=== PATIENT | male | born 2000 | race Caucasian/White ===

== ENCOUNTER 2023-02-23 17:22 | Emergency (ER) | payer OTHER, SELFPAY ==
[2023-02-23 17:34] VITALS: BP 134/76; PULSE 68; RESP 12; TEMP 37; O2SAT 96; BMI 29.5
[2023-02-23 17:55] LABS: Basophils Absolute Auto 0.1 10^3/uL (0.0-0.1); Basophils Percent Auto 0.9 % (0.2-2.0); Eosinophils Absolute Auto 0.5 10^3/uL (0.0-0.7); Eosinophils Percent Auto 7.8 % (0.9-7.0); Hematocrit 45.4 % (42.0-54.0); Immature Granulocytes Abs Auto 0.03 10^3/uL (0.00-0.03); Immature Granulocytes Pct Auto 0.5 % (0.0-0.5); Lymphocytes Absolute Auto 1.8 10^3/uL (1.2-3.8); Lymphocytes Percent Auto 28.4 % (20.5-60.0); Mean Corpuscular HGB Conc 35.2 g/dL (29.9-35.2); Mean Corpuscular Hemoglobin 32.3 pg (25.9-34.0); Mean Corpuscular Volume 91.5 fL (80.0-94.0); Mean Platelet Volume 10.1 fL (9.5-13.5); Monocytes Absolute Auto 0.7 10^3/uL (0.3-0.8); Monocytes Percent Auto 11.5 % (1.7-12.0); Neutrophils Absolute Auto 3.2 10^3/uL (1.4-6.5); Neutrophils Percent Auto 50.9 % (43.0-75.0); Platelet Count 279 10^3/uL (150-450); Red Blood Count 4.96 10^6/uL (4.70-6.10); White Blood Count 6.4 10^3/uL (4.0-11.0)
[2023-02-23 18:07] LABS: Bilirubin Urine NEGATIVE (NEGATIVE); Blood Urine NEGATIVE (NEGATIVE); Clarity Urine CLEAR (CLEAR); Color Urine YELLOW (YELLOW); Glucose Urine UA NEGATIVE (NEGATIVE); Ketones Urine NEGATIVE (NEGATIVE); Leukocyte Esterase Urine NEGATIVE (NEGATIVE); Nitrite Urine NEGATIVE (NEGATIVE); Protein Urine NEGATIVE (NEG/TRACE); Specific Gravity Urine 1.015 (1.005-1.025); Urobilinogen Urine 0.2 EU/dL (0.2-1.0)
[2023-02-23 18:11] LABS: Urine Microscopic Indicated NO
[2023-02-23 18:19] LABS: Alanine Aminotransferase 81 U/L (16-63); Albumin Globulin Ratio 1.4; Albumin Level 4.4 g/dL (3.4-5.0); Alkaline Phosphatase 51 U/L (46-116); Anion Gap 14.1; Aspartate Amino Transferase 39 U/L (15-37); BUN Creatinine Ratio 8.7; Bilirubin Total 0.4 mg/dL (0.2-1.0); Calcium 9.4 mg/dL (8.5-10.1); Carbon Dioxide 28.6 mmol/L (21.0-32.0); Chloride 102 mmol/L (98-107); Estimated GFR (African America >60 (>=60); Estimated GFR (Non-African Ame >60 (>=60); Globulin 3.2 g/dL; Glucose 95 mg/dL (74-106); Potassium 4.7 mmol/L (3.5-5.1); Sodium 140 mmol/L (136-145); Total Protein 7.6 g/dL (6.4-8.2)
--- NOTE | 2023-02-23 18:56 | ECG_ITS ---
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
--- NOTE | 2023-02-23 19:04 | US_ITS ---
The [address] [address] Patient Name: BEV MORROW MRN: [id number] date: 2000 Sex: M Assigned Patient Location: ED.MAIN Current Patient Location: ER Accession/Order Number: [id number] Exam Date: 02/23/2023 19:30 Report Date: 02/23/2023 20:14 At the request of: SUNNY BUI Procedure: US right upper quadrant RIGHT UPPER QUADRANT ULTRASOUND HISTORY: Epigastric pain COMPARISON: None. TECHNIQUE: Sonography of the right upper quadrant was performed. Images were obtained and stored in a permanent archive. RESULTS: Pancreas: Normal sonographic appearance. Portions obscured: tail Liver: Craniocaudal length 17 cm Echotexture: Normal, homogeneous. Echogenicity: Normal Surface contour: Smooth Lesions: None. Biliary: No intrahepatic biliary duct dilation. CBD: 0.2 cm at the hilum. Gallbladder: Normal caliber -Contents: No cholelithiasis -Wall: Normal -Other: No pericholecystic fluid. Right Kidney: No hydronephrosis. Ascites: None. US/US right upper quadrant IMPRESSION: NORMAL SONOGRAPHIC APPEARANCE OF THE RIGHT UPPER QUADRANT. Electronically authenticated by: KANA AMBRIZ Date: 02/23/2023 20:14
--- NOTE | 2023-02-23 19:05 | ED.ABDPAIN1 ---
Documented by User: SANCHEZ Melgar 02/23/23 20:21 HPI - Abdominal Pain General Chief Complaint: Abdominal Pain Stated Complaint: Abdominal Pain Time Seen by Provider: 02/23/23 17:40 Source: patient Mode of arrival: walk-in Limitations: no limitations History of Present Illness HPI narrative: patient is a 22-year-old male who presents to the emergency department for the evaluation of abdominal pain for the last four days. He describes pain in the epigastrium radiating into the chest. He reports occasional nausea but has not had any vomiting, fevers or upper respiratory symptoms. No medications taken prior to arrival. He denies any low abdominal pain, flank pain or back pain. No urinary symptoms. He states he has had occasional diarrhea. He denies emily chest pain, shortness of breath but states he has had heart palpitations for over a year which has not been evaluated by his PCP. He has not had any extremity swelling, hemoptysis. No recent surgeries or traumas. Related Data Home Medications Medication Instructions Recorded Confirmed fexofenadine 180 mg tablet 180 mg PO DAILY PRN allergies 02/23/23 02/23/23 (Mesha Allergy) Previous Rx's Medication Instructions Recorded ondansetron 4 mg disintegrating 4 mg PO Q6H PRN nausea and 02/23/23 tablet vomiting #12 tabs pantoprazole 40 mg tablet,delayed 40 mg PO DAILY #7 tabs 02/23/23 release (Protonix) sucralfate 1 gram tablet (Carafate) 1 g PO Q6H PRN abdominal pain #12 02/23/23 tabs Allergies Allergy/AdvReac Type Severity Reaction Status Date / Time No Known Drug Allergies Allergy Verified 02/23/23 17:33 Review of Systems ROS Constitutional Denies: fever or chills Ears, nose, mouth, and throat Denies: throat pain Cardiovascular Reports: palpitations; Denies: chest pain Respiratory Denies: shortness of breath or cough Gastrointestinal Reports: abdominal pain and nausea; Denies: vomiting Musculoskeletal Denies: back pain or neck pain Integumentary/Breast Denies: rash PFSH PFSH Social History Smoking status: Current every day smoker Exam Narrative Exam Narrative: Gen.: Awake, alert, in no distress Head: Normocephalic, atraumatic ENT: Moist mucous membranes Respiratory: No respiratory distress, lungs clear bilaterally Cardio: Regular rate and rhythm Gastrointestinal: Abdomen is soft, nondistended and nontender to palpation Extremities: Moves extremities equally, no injuries noted Psych: Normal mood and affect Neuro: No focal neuro deficit Skin: Warm, dry, intact Constitutional Vital Signs, click to edit/add: Last Vital Signs Temp 98.6 F 02/23/23 17:34 Pulse 68 02/23/23 17:34 Resp 12 02/23/23 17:34 BP 134/76 02/23/23 17:34 Pulse Ox 96 02/23/23 17:34 O2 Del Method Room Air 02/23/23 17:34 Course Vital Signs Vital signs: Vital Signs Temperature 98.6 F 02/23/23 17:34 Pulse Rate 68 02/23/23 17:34 Respiratory Rate 12 02/23/23 17:34 Blood Pressure 134/76 02/23/23 17:34 Pulse Oximetry 96 02/23/23 17:34 Oxygen Delivery Method Room Air 02/23/23 17:34 Temperature 98.6 F 02/23/23 17:34 Pulse Rate 68 02/23/23 17:34 Respiratory Rate 12 02/23/23 17:34 Blood Pressure 134/76 02/23/23 17:34 Pulse Oximetry 96 02/23/23 17:34 Oxygen Delivery Method Room Air 02/23/23 17:34 MDM - Abdominal Pain MDM Narrative Medical decision making narrative: patient treated with IV fluids, Protonix, Zofran. EKG, lab studies within normal limits although LFTs are minimally elevated to the patient was sent for an ultrasound of the right upper quadrant which is unremarkable. He'll be discharged home with Protonix, Carafate, Zofran. Follow-up with PCP and return to the Emergency Room if symptoms change or worsen. Medical Records Attestation: I reviewed the patient's medical records. Lab Data Attestation: I reviewed the patient's lab results. Labs: Lab Results 02/23/23 Range/Units 17:45 WBC 6.4 (4.0-11.0) 10^3/uL RBC 4.96 (4.70-6.10) 10^6/uL Hgb 16.0 (14.0-18.0) g/dL Hct 45.4 (42.0-54.0) % MCV 91.5 (80.0-94.0) fL MCH 32.3 (25.9-34.0) pg MCHC 35.2 (29.9-35.2) g/dL RDW 12.0 (11.0-15.0) % Plt Count 279 (150-450) 10^3/uL MPV 10.1 (9.5-13.5) fL Neut % (Auto) 50.9 (43.0-75.0) % Lymph % (Auto) 28.4 (20.5-60.0) % [place] % (Auto) 11.5 (1.7-12.0) % Eos % (Auto) 7.8 H (0.9-7.0) % Baso % (Auto) 0.9 (0.2-2.0) % Neut # (Auto) 3.2 (1.4-6.5) 10^3/uL Lymph # (Auto) 1.8 (1.2-3.8) 10^3/uL [place] # (Auto) 0.7 (0.3-0.8) 10^3/uL Eos # (Auto) 0.5 (0.0-0.7) 10^3/uL Baso # (Auto) 0.1 (0.0-0.1) 10^3/uL Abs Immat Gran (auto) 0.03 (0.00-0.03) 10^3/uL Imm/Tot Granulo (auto) 0.5 (0.0-0.5) % Sodium 140 (136-145) mmol/L Potassium 4.7 (3.5-5.1) mmol/L Chloride 102 (98-107) mmol/L Carbon Dioxide 28.6 (21.0-32.0) mmol/L Anion Gap 14.1 BUN 9.0 (7.0-18.0) mg/dL Creatinine 1.04 (0.70-1.30) mg/dL Est GFR ( Amer) >60 (>=60) Est GFR (Non-Af Amer) >60 (>=60) BUN/Creatinine Ratio 8.7 Glucose 95 (74-106) mg/dL Calcium 9.4 (8.5-10.1) mg/dL Total Bilirubin 0.4 (0.2-1.0) mg/dL AST 39 H (15-37) U/L ALT 81 H (16-63) U/L Alkaline Phosphatase 51 (46-116) U/L Total Protein 7.6 (6.4-8.2) g/dL Albumin 4.4 (3.4-5.0) g/dL Globulin 3.2 g/dL Albumin/Globulin Ratio 1.4 Lipase 45.0 L (73.0-393.0) U/L TSH 2.009 (0.358-3.740) uIU/mL Urine Color Yellow (YELLOW) Urine Clarity Clear (CLEAR) Urine pH 7.0 (5.0-9.0) Ur Specific [place] 1.015 (1.005-1.025) Urine Protein Negative (NEG/TRACE) mg/dL Urine Glucose (UA) Negative (NEGATIVE) mg/dL Urine Ketones Negative (NEGATIVE) mg/dL Urine Occult Blood Negative (NEGATIVE) Urine Nitrite Negative (NEGATIVE) Urine Bilirubin Negative (NEGATIVE) Urine Urobilinogen 0.2 (0.2-1.0) EU/dL Ur Leukocyte Esterase Negative (NEGATIVE) Imaging Data US - abdomen: Attestation: I have reviewed the pertinent imaging results. Radiologist's impression: Procedure: US right upper quadrant RIGHT UPPER QUADRANT ULTRASOUND HISTORY: Epigastric pain COMPARISON: None. TECHNIQUE: Sonography of the right upper quadrant was performed. Images were obtained and stored in a permanent archive. RESULTS: Pancreas: Normal sonographic appearance. Portions obscured: tail Liver: Craniocaudal length 17 cm Echotexture: Normal, homogeneous. Echogenicity: Normal Surface contour: Smooth Lesions: None. Biliary: No intrahepatic biliary duct dilation. CBD: 0.2 cm at the hilum. Gallbladder: Normal caliber -Contents: No cholelithiasis -Wall: Normal -Other: No pericholecystic fluid. Right Kidney: No hydronephrosis. Ascites: None. IMPRESSION: NORMAL SONOGRAPHIC APPEARANCE OF THE RIGHT UPPER QUADRANT. Electronically authenticated by: KANA AMBRIZ Date: 02/23/2023 20:14 ECG Data Attestation: I personally reviewed and interpreted this ECG as follows: (normal sinus rhythm at a rate of sixty-four, no acute ST elevation or ectopy. Sinus arrhythmia noted. EKG reviewed by attending physician.) ECG interpretation date: 02/23/23 ECG interpretation time: 19:07 Discharge Plan Discharge Chief Complaint: Abdominal Pain Clinical Impression: Abdominal pain Patient Disposition: Home, Self-Care Time of Disposition Decision: 20:18 Condition: Good Prescriptions / Home Meds: New sucralfate [Carafate] 1 gram tablet 1 g PO Q6H PRN (Reason: abdominal pain) Qty: 12 0RF pantoprazole [Protonix] 40 mg tablet,delayed release (DR/EC) 40 mg PO DAILY Qty: 7 0RF ondansetron 4 mg tablet,disintegrating 4 mg PO Q6H PRN (Reason: nausea and vomiting) Qty: 12 0RF No Action fexofenadine [Mesha Allergy] 180 mg tablet 180 mg PO DAILY PRN (Reason: allergies) Instructions: Abdominal Pain (ED) Stand Alone Forms: Portal Instructions Referrals: Physician,Non-Staff, MD [Primary Care Provider] - 1 week Discharge Date/Time: 02/23/23 20:27 Documented by User: Juan Aguilar MD 03/28/23 16:58 HPI - Abdominal Pain General Chief Complaint: Abdominal Pain Stated Complaint: Abdominal Pain Time Seen by Provider: 02/23/23 17:40 Related Data Home Medications Medication Instructions Recorded Confirmed fexofenadine 180 mg tablet 180 mg PO DAILY PRN allergies 02/23/23 02/23/23 (Mesha Allergy) Previous Rx's Medication Instructions Recorded ondansetron 4 mg disintegrating 4 mg PO Q6H PRN nausea and 02/23/23 tablet vomiting #12 tabs pantoprazole 40 mg tablet,delayed 40 mg PO DAILY #7 tabs 02/23/23 release (Protonix) sucralfate 1 gram tablet (Carafate) 1 g PO Q6H PRN abdominal pain #12 02/23/23 tabs Allergies Allergy/AdvReac Type Severity Reaction Status Date / Time No Known Drug Allergies Allergy Verified 02/23/23 17:33 PFSH PFSH Social History Smoking status: Current every day smoker Exam Constitutional Vital Signs, click to edit/add: Last Vital Signs Temp 98.6 F 02/23/23 17:34 Pulse 68 02/23/23 17:34 Resp 12 02/23/23 17:34 BP 134/76 02/23/23 17:34 Pulse Ox 96 02/23/23 17:34 O2 Del Method Room Air 02/23/23 17:34 Course Vital Signs Vital signs: Vital Signs Temperature 98.6 F 02/23/23 17:34 Pulse Rate 68 02/23/23 17:34 Respiratory Rate 12 02/23/23 17:34 Blood Pressure 134/76 02/23/23 17:34 Pulse Oximetry 96 02/23/23 17:34 Oxygen Delivery Method Room Air 02/23/23 17:34 Temperature 98.6 F 02/23/23 17:34 Pulse Rate 68 02/23/23 17:34 Respiratory Rate 12 02/23/23 17:34 Blood Pressure 134/76 02/23/23 17:34 Pulse Oximetry 96 02/23/23 17:34 Oxygen Delivery Method Room Air 02/23/23 17:34 MDM - Abdominal Pain MDM Narrative Medical decision making narrative: patient treated with IV fluids, Protonix, Zofran. EKG, lab studies within normal limits although LFTs are minimally elevated to the patient was sent for an ultrasound of the right upper quadrant which is unremarkable. He'll be discharged home with Protonix, Carafate, Zofran. Follow-up with PCP and return to the Emergency Room if symptoms change or worsen. I, Dr Aguilar, have reviewed the above progress note and course of action in the ER; agree with the above. I have personally seen and evaluated this patient, gone over history and physical, and discussed disposition and treatment plan with the patient. Lab Data Attestation: I reviewed the patient's lab results. Labs: Lab Results 02/23/23 Range/Units 17:45 WBC 6.4 (4.0-11.0) 10^3/uL RBC 4.96 (4.70-6.10) 10^6/uL Hgb 16.0 (14.0-18.0) g/dL Hct 45.4 (42.0-54.0) % MCV 91.5 (80.0-94.0) fL MCH 32.3 (25.9-34.0) pg MCHC 35.2 (29.9-35.2) g/dL RDW 12.0 (11.0-15.0) % Plt Count 279 (150-450) 10^3/uL MPV 10.1 (9.5-13.5) fL Neut % (Auto) 50.9 (43.0-75.0) % Lymph % (Auto) 28.4 (20.5-60.0) % [place] % (Auto) 11.5 (1.7-12.0) % Eos % (Auto) 7.8 H (0.9-7.0) % Baso % (Auto) 0.9 (0.2-2.0) % Neut # (Auto) 3.2 (1.4-6.5) 10^3/uL Lymph # (Auto) 1.8 (1.2-3.8) 10^3/uL [place] # (Auto) 0.7 (0.3-0.8) 10^3/uL Eos # (Auto) 0.5 (0.0-0.7) 10^3/uL Baso # (Auto) 0.1 (0.0-0.1) 10^3/uL Abs Immat Gran (auto) 0.03 (0.00-0.03) 10^3/uL Imm/Tot Granulo (auto) 0.5 (0.0-0.5) % Sodium 140 (136-145) mmol/L Potassium 4.7 (3.5-5.1) mmol/L Chloride 102 (98-107) mmol/L Carbon Dioxide 28.6 (21.0-32.0) mmol/L Anion Gap 14.1 BUN 9.0 (7.0-18.0) mg/dL Creatinine 1.04 (0.70-1.30) mg/dL Est GFR ( Amer) >60 (>=60) Est GFR (Non-Af Amer) >60 (>=60) BUN/Creatinine Ratio 8.7 Glucose 95 (74-106) mg/dL Calcium 9.4 (8.5-10.1) mg/dL Total Bilirubin 0.4 (0.2-1.0) mg/dL AST 39 H (15-37) U/L ALT 81 H (16-63) U/L Alkaline Phosphatase 51 (46-116) U/L Total Protein 7.6 (6.4-8.2) g/dL Albumin 4.4 (3.4-5.0) g/dL Globulin 3.2 g/dL Albumin/Globulin Ratio 1.4 Lipase 45.0 L (73.0-393.0) U/L TSH 2.009 (0.358-3.740) uIU/mL Urine Color Yellow (YELLOW) Urine Clarity Clear (CLEAR) Urine pH 7.0 (5.0-9.0) Ur Specific [place] 1.015 (1.005-1.025) Urine Protein Negative (NEG/TRACE) mg/dL Urine Glucose (UA) Negative (NEGATIVE) mg/dL Urine Ketones Negative (NEGATIVE) mg/dL Urine Occult Blood Negative (NEGATIVE) Urine Nitrite Negative (NEGATIVE) Urine Bilirubin Negative (NEGATIVE) Urine Urobilinogen 0.2 (0.2-1.0) EU/dL Ur Leukocyte Esterase Negative (NEGATIVE) Discharge Plan Discharge Chief Complaint: Abdominal Pain Clinical Impression: Abdominal pain Patient Disposition: Home, Self-Care Time of Disposition Decision: 20:18 Condition: Good Prescriptions / Home Meds: New sucralfate [Carafate] 1 gram tablet 1 g PO Q6H PRN (Reason: abdominal pain) Qty: 12 0RF pantoprazole [Protonix] 40 mg tablet,delayed release (DR/EC) 40 mg PO DAILY Qty: 7 0RF ondansetron 4 mg tablet,disintegrating 4 mg PO Q6H PRN (Reason: nausea and vomiting) Qty: 12 0RF No Action fexofenadine [Mesha Allergy] 180 mg tablet 180 mg PO DAILY PRN (Reason: allergies) Instructions: Abdominal Pain (ED) Stand Alone Forms: Portal Instructions Referrals: Physician,Non-Staff, MD [Primary Care Provider] - 1 week Discharge Date/Time: 02/23/23 20:27
[2023-02-23 19:34] LABS: Thyroid Stimulating Hormone 2.009 uIU/mL (0.358-3.740)
[2023-02-23] MEDS: PANTOPRAZOLE SODIUM 40 MG VIAL IV (19:36)
[2023-02-23] MEDS: 0.9 % SODIUM CHLORIDE 1,000 ML 1000 ML IV (19:36)
[2023-02-23] MEDS: ONDANSETRON PF 4 MG/2 ML VIAL IV (19:36)
== END 2023-02-23 20:27 | disposition home or self-care (01) ==
PROVIDERS: Emergency Medicine; Physician Assistant; Emergency Provider Internal Medicine
DX: R10.9 Unspecified abdominal pain (principal); Z79.899 Other long term (current) drug therapy; F17.210 Nicotine dependence, cigarettes, uncomplicated
CPT/HCPCS: 36415; 76705; 80053; 81003; 83690; 84443; 85025; 93005; 96374; 96375; 99285

== ENCOUNTER 2023-09-06 20:30 | Emergency (ER) | payer OTHER, SELFPAY ==
[2023-09-06 20:43] VITALS: BP 131/100; PULSE 75; RESP 16; TEMP 37.1; O2SAT 99; BMI 31.0
--- NOTE | 2023-09-06 20:54 | ECG_ITS ---
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
--- NOTE | 2023-09-06 20:55 | ED_ITS ---
HPI - Arrhythmia/Palpitations General Chief Complaint: Arrhythmia/Palpitations Stated Complaint: Palpitation Time Seen by Provider: 09/06/23 20:36 Source: patient Mode of arrival: walk-in Limitations: no limitations History of Present Illness HPI narrative: Patient is a 23-year-old male who returns to the emergency department for continued intermittent palpitations over the last 3 months. He states he was seen in this emergency department for the same about 6 months ago. He does not have a primary care provider. He has not followed up since his previous emergency department visit. He states for the last 3 months intermittently he has a sensation that his heart is racing and skipping. He will occasionally have discomfort in the right upper chest. He states the palpitations take his breath away but he has no persistent shortness of breath. He has had mild congestion recently but no significant upper respiratory symptoms, vomiting or leg swelling. He states he typically notices the palpitations when he is laying down and resting. Related Data Home Medications Medication Instructions Recorded Confirmed No Known Home Medications 09/06/23 09/06/23 Allergies Allergy/AdvReac Type Severity Reaction Status Date / Time No Known Drug Allergies Allergy Verified 02/23/23 17:33 Review of Systems ROS Constitutional Denies: fever or chills Ears, nose, mouth, and throat Reports: nasal congestion Cardiovascular Reports: chest pain and palpitations Respiratory Denies: shortness of breath or cough Gastrointestinal Denies: nausea or vomiting Musculoskeletal Denies: back pain Integumentary/Breast Denies: rash Neurological Denies: headache PFSH PFSH Social History Smoking status: Current every day smoker Exam Narrative Exam Narrative: Gen.: Awake, alert, in no distress Head: Normocephalic, atraumatic ENT: Moist mucous membranes Respiratory: No respiratory distress, lungs clear bilaterally Cardio: Regular rate and rhythm Extremities: Moves extremities equally, no pedal edema Psych: Normal mood and affect Neuro: No focal neuro deficit Skin: Warm, dry, intact Constitutional Vital Signs, click to edit/add: Last Vital Signs Temp 98.8 F 09/06/23 20:43 Pulse 78 09/06/23 22:51 Resp 16 09/06/23 22:51 BP 129/75 09/06/23 22:51 Pulse Ox 100 09/06/23 22:51 O2 Del Method Room Air 09/06/23 20:43 Course Vital Signs Vital signs: Vital Signs Temperature 98.8 F 09/06/23 20:43 Pulse Rate 75 09/06/23 20:43 Respiratory Rate 16 09/06/23 20:43 Blood Pressure 131/100 H 09/06/23 20:43 Pulse Oximetry 99 09/06/23 20:43 Oxygen Delivery Method Room Air 09/06/23 20:43 Temperature 98.8 F 09/06/23 20:43 Pulse Rate 78 09/06/23 22:51 Respiratory Rate 16 09/06/23 22:51 Blood Pressure 129/75 09/06/23 22:51 Pulse Oximetry 100 09/06/23 22:51 Oxygen Delivery Method Room Air 09/06/23 20:43 MDM - Arrhythmia/Palpitations MDM Narrative Medical decision making narrative: 2140: Patient ordered to have lab testing, EKG. Imaging of the chest will be ordered after the D-dimer results. Case is turned over to attending physician at this time for disposition. For this patient encounter I reviewed the mid-level provider?s documentation, medical decision-making and treatment plan, and I personally spent time with this patient. Shared APC visit, physician attestation: [id number]: This visit was performed by both a physician and an APC. I personally evaluated and examined the patient. I performed all aspects of MDM as documented. - JHay, DO Normal CBC & CMP. TSH normal. PA ordered d dimer despite negative perc score and it was elevated at 0.8. Patient was sent for CT angio of chest but there was a dye infusion failure and there was no IV dye on chest CT. Report per radiologist is noted below. Patient discharged home with recommendation to get Holter monitor placed - referred to cardiology for follow up. Medical Records Attestation: I reviewed the patient's medical records. Lab Data Attestation: I reviewed the patient's lab results. Labs: Lab Results 09/06/23 Range/Units 21:11 WBC 6.6 (4.0-11.0) 10^3/uL RBC 5.09 (4.70-6.10) 10^6/uL Hgb 16.5 (14.0-18.0) g/dL Hct 48.2 (42.0-54.0) % MCV 94.7 H (80.0-94.0) fL MCH 32.4 (25.9-34.0) pg MCHC 34.2 (29.9-35.2) g/dL RDW 11.7 (11.0-15.0) % Plt Count 288 (150-450) 10^3/uL MPV 10.1 (9.5-13.5) fL Neut % (Auto) 54.5 (43.0-75.0) % Lymph % (Auto) 26.9 (20.5-60.0) % [place] % (Auto) 10.8 (1.7-12.0) % Eos % (Auto) 6.4 (0.9-7.0) % Baso % (Auto) 1.1 (0.2-2.0) % Neut # (Auto) 3.6 (1.4-6.5) 10^3/uL Lymph # (Auto) 1.8 (1.2-3.8) 10^3/uL [place] # (Auto) 0.7 (0.3-0.8) 10^3/uL Eos # (Auto) 0.4 (0.0-0.7) 10^3/uL Baso # (Auto) 0.1 (0.0-0.1) 10^3/uL Abs Immat Gran (auto) 0.02 (0.00-0.03) 10^3/uL Imm/Tot Granulo (auto) 0.3 (0.0-0.5) % D-Dimer 0.82 H* (<=0.59) mg/L FEU Sodium 143 (136-145) mmol/L Potassium 4.5 (3.5-5.1) mmol/L Chloride 106 (98-107) mmol/L Carbon Dioxide 29.7 (21.0-32.0) mmol/L Anion Gap 11.8 BUN 10.0 (7.0-18.0) mg/dL Creatinine 0.96 (0.70-1.30) mg/dL Est GFR ( Amer) >60 (>=60) Est GFR (Non-Af Amer) >60 (>=60) BUN/Creatinine Ratio 10.4 Glucose 92 (74-106) mg/dL Calcium 9.4 (8.5-10.1) mg/dL Magnesium 2.1 (1.8-2.4) mg/dL Total Bilirubin 1.1 H (0.2-1.0) mg/dL AST 54 H (15-37) U/L ALT 118 H (16-63) U/L Alkaline Phosphatase 57 (46-116) U/L Troponin I High Sens 6.0 (4.0-76.1) pg/mL Total Protein 7.8 (6.4-8.2) g/dL Albumin 4.1 (3.4-5.0) g/dL Globulin 3.7 g/dL Albumin/Globulin Ratio 1.1 TSH 1.319 (0.358-3.740) uIU/mL Imaging Data CT scan - chest: Radiologist's impression: ITS Impressions Chest CTA 09/06/23 22:37 IMPRESSION: 1. Nondiagnostic study as there is no appreciable IV or vascular contrast on board; no pulmonary artery enhancement. According to the technologist who performed the study, there is no visible or appreciable leak of contrast from tubing. There is no visible or appreciable extravasation or infiltration in the patient's arm. It is unclear as to the technical problem. Consider repeat study or other imaging modality such as VQ scan if clinically indicated. 2. Essentially, this is a normal noncontrast chest CT. See comments above. Electronically authenticated by: ALBA CABRAL Date: 09/07/2023 00:02 ECG Data Attestation: I personally reviewed and interpreted this ECG as follows: (Normal sinus rhythm at a rate of 65 with occasional PVC, no acute ST elevation. EKG reviewed by attending physician) ECG interpretation date: 09/06/23 ECG interpretation time: 20:58 Discharge Plan Discharge Chief Complaint: Arrhythmia/Palpitations Clinical Impression: Palpitations Patient Disposition: Home, Self-Care Time of Disposition Decision: 00:31 Prescriptions / Home Meds: No Action No Known Home Medications Instructions: Heart Palpitations (ED) Stand Alone Forms: Portal Instructions Referrals: ENRIQUE RINCON [Physician] - As soon as possible Physician,Non-Staff, [Primary Care Provider] - 1 week Discharge Date/Time: 09/07/23 00:58
[2023-09-06 21:45] LABS: Basophils Absolute Auto 0.1 10^3/uL (0.0-0.1); Basophils Percent Auto 1.1 % (0.2-2.0); Eosinophils Absolute Auto 0.4 10^3/uL (0.0-0.7); Eosinophils Percent Auto 6.4 % (0.9-7.0); Hematocrit 48.2 % (42.0-54.0); Hemoglobin 16.5 g/dL (14.0-18.0); Immature Granulocytes Abs Auto 0.02 10^3/uL (0.00-0.03); Immature Granulocytes Pct Auto 0.3 % (0.0-0.5); Lymphocytes Absolute Auto 1.8 10^3/uL (1.2-3.8); Lymphocytes Percent Auto 26.9 % (20.5-60.0); Mean Corpuscular HGB Conc 34.2 g/dL (29.9-35.2); Mean Corpuscular Hemoglobin 32.4 pg (25.9-34.0); Mean Corpuscular Volume 94.7 fL (80.0-94.0); Mean Platelet Volume 10.1 fL (9.5-13.5); Monocytes Absolute Auto 0.7 10^3/uL (0.3-0.8); Monocytes Percent Auto 10.8 % (1.7-12.0); Neutrophils Absolute Auto 3.6 10^3/uL (1.4-6.5); Neutrophils Percent Auto 54.5 % (43.0-75.0); Platelet Count 288 10^3/uL (150-450); Red Blood Count 5.09 10^6/uL (4.70-6.10); Red Cell Distribution Width 11.7 % (11.0-15.0); White Blood Count 6.6 10^3/uL (4.0-11.0)
[2023-09-06 22:10] LABS: Magnesium 2.1 mg/dL (1.8-2.4)
[2023-09-06 22:21] LABS: Alanine Aminotransferase 118 U/L (16-63); Albumin Globulin Ratio 1.1; Albumin Level 4.1 g/dL (3.4-5.0); Alkaline Phosphatase 57 U/L (46-116); Anion Gap 11.8; Aspartate Amino Transferase 54 U/L (15-37); BUN Creatinine Ratio 10.4; Bilirubin Total 1.1 mg/dL (0.2-1.0); Calcium 9.4 mg/dL (8.5-10.1); Carbon Dioxide 29.7 mmol/L (21.0-32.0); Chloride 106 mmol/L (98-107); Estimated GFR (African America >60 (>=60); Estimated GFR (Non-African Ame >60 (>=60); Globulin 3.7 g/dL; Glucose 92 mg/dL (74-106); Potassium 4.5 mmol/L (3.5-5.1); Sodium 143 mmol/L (136-145); Thyroid Stimulating Hormone 1.319 uIU/mL (0.358-3.740); Total Protein 7.8 g/dL (6.4-8.2)
[2023-09-06 22:23] LABS: D Dimer 0.82 mg/L FEU (<=0.59)
--- NOTE | 2023-09-06 22:37 | CT_ITS ---
The [address] [address] Patient Name: BEV MORROW MRN: [id number] date: 2000 Sex: M Assigned Patient Location: ER Current Patient Location: Accession/Order Number: [id number] Exam Date: 09/06/2023 23:05 Report Date: 09/07/2023 00:02 At the request of: AGUSTINA DOWD Procedure: CT angio chest EXAM: CT angio chest HISTORY: elevated ddimer, palpitations COMPARISON: None. TECHNIQUE: By report, this was a CTA chest with IV contrast; however, there is no visible IV contrast within the vascular system on this study. According to the technologist, there is no IV infiltration. Thin section axial CT images were obtained from the thoracic inlet to the upper abdomen. This CT exam was performed using one or more of the following dose reduction techniques: Automated exposure control, adjustment of the mA and/or kV according to patient size, or use of iterative reconstruction technique. Thin section coronal and sagittal images were reconstructed from the axial data set. All images were reviewed and interpreted. FINDINGS: This is a nondiagnostic study for pulmonary embolus assessment as there is no appreciable vascular contrast identified. Cardiac chambers are normal in size with no pericardial effusion. Normal caliber thoracic aorta and branch pattern from the arch. No pulmonary venous congestion. No mediastinal or hilar lymphadenopathy. Trachea and airway structures are unremarkable. Thyroid gland is normal. Normal GE junction and stomach. Both lungs are well aerated, expanded and clear. Small bleb dependent posterior right lower lobe. No pneumothorax. No pleural effusion or thickening. No parenchymal lung mass or nodule or consolidating process. Normal thoracic osseous structures. Upper abdomen also demonstrates hepatic steatosis. CT/CT angio chest IMPRESSION: 1. Nondiagnostic study as there is no appreciable IV or vascular contrast on board; no pulmonary artery enhancement. According to the technologist who performed the study, there is no visible or appreciable leak of contrast from tubing. There is no visible or appreciable extravasation or infiltration in the patient's arm. It is unclear as to the technical problem. Consider repeat study or other imaging modality such as VQ scan if clinically indicated. 2. Essentially, this is a normal noncontrast chest CT. See comments above. Electronically authenticated by: ALBA CABRAL Date: 09/07/2023 00:02
[2023-09-06 22:51] VITALS: BP 129/75; PULSE 78; RESP 16; O2SAT 100
== END 2023-09-07 00:58 | disposition home or self-care (01) ==
PROVIDERS: Physician Assistant; Emergency Provider Emergency Medicine
DX: R00.2 Palpitations (principal); F17.200 Nicotine dependence, unspecified, uncomplicated; R79.89 Other specified abnormal findings of blood chemistry
CPT/HCPCS: 36415; 71275; 80053; 83735; 84443; 84484; 85025; 85378; 93005; 99285; Q9967

== ENCOUNTER 2023-12-02 11:54 | Emergency (ER) | payer OTHER, SELFPAY ==
[2023-12-02 12:00] VITALS: BP 120/85; PULSE 78; TEMP 36.6; O2SAT 100; BMI 31.3
--- OUTSIDE RECORDS SUMMARY | 2023-12-02 12:17 | XMS_ITS | CCD ---
Author Organization [facility] Care Team Providers Care Secondary Set Up Man Name Role Phone JULIO, DR SARAH Regalado Admitting Unavailable JULIO, DR SARAH Regalado Attending Unavailable JULIO, DR SARAH Regalado Consulting Unavailable MATTHEW, ECHO Consulting Unavailable REQUEST, NONE LISTED Primary Care Unavaila ble MICHAEL, JUAN JOSE Admitting Unavailable MICHAEL, JUAN JOSE Attending Unavailable DENVER, DR PARK Regalado Consulting Unavailable NILE, DR BERRIOS Consulting Unavailable MICHAEL, JUAN JOSE Consulting Unavailable EMERALD PUENTES Consulting Unavailable DENVER, DR PARK Regalado Consulting Unavailable MARANDA, NONE LISTED Primary Care Unavaila nathan MICHEL ., TREV Attending Unavailable ANAND ., TREV Admitting Unavailable SANCHEZ BUI Consulting Unavailable Stefanie Sotelo Unavailable ALMA Geller Emergency Provider NO FAMILY, PHYSICIAN Primary Care Provider Unava ilable Eduin Geller Attending Unavailable Eduin Geller Admitting Unavailable NO FAMILY, PHYSICIAN Primary Care Unavailable Medications Current Medications Medication Drug Class(es) Dates Sig (Normalized) Sig (Original) dextromethorphan hydrobromide 15 mg / guaiFENesin 400 mg / pseudoephedrine hydrochloride 60 mg oral tablet (1 source) alpha-Adrenergic Agonist, Uncompetitive Q-endtgx-W-aspartate Receptor Antagonist, Sigma-1 Agonist Start: 04-26-2023 take 4 tablets by mouth every twenty-four hours as needed Capmist DM 60-15-400 MG as needed Orally every 4-6 hours as needed, max 4 tablets in 24 hours for 5 days Apr, Active fluticasone propionate 0.05 mg/actuat metered dose nasal spray (1 source) Corticosteroid Start: 04-26-2023 take 1 spray(s) nasal route once daily Flonase Allergy Relief 50 MCG/ACT 1 spray in each nostril Nasally Once a day for 14 day(s) Apr, Active Problems Active Problems Problem Classification Problem Date Documented Da te Episodic/Chronic Anxiety disorders (1 source) Anxiety; Translations: [Anxiety disorder, unspecified] 11-27-2023 Chronic Cardiac dysrhythmias (8 sources) Palpitations; Translations: [Tachycardia, unspecified] Onset: 11-04-2021 Episodic Nonspecific chest pain (1 source) Chest pain; Translations: [Chest pain, unspecified] 11-27-2023 Episodic Other upper respiratory infections (4 sources) Acute pharyngitis, unspecified; Translations: [Acute upper respiratory infection, unspecified] Episodic Substance-related disorders (1 source) Nicotine dependence, cigarettes, uncomplicated; Translations: [NICOTINE DEPEND CIGARETTES UNCOMP] Onset: 08-17-2022 Chronic Past or Other Problems Problem Classification Problem Date Documented Da te Episodic/Chronic E Codes: Struck by; against (1 source) Other cause of strike by thrown, projected or falling object, initial encounter; Translations: [OTH CAUSE STRIK THRWN/FALL OBJ INIT] Onset: 10-01-2021 Episodic Superficial injury; contusion (5 sources) Contusion of left foot, initial encounter; Translations: [Contusion of left ankle, initial encounter] Onset: 09-30-2021 Episodic Unclassified (1 source) Suspected COVID-19 virus infection Z20.822 Results Test Name Value Interpretation Reference Range Facility CT angio chest PE protocolon 11-28-2023 CT angio chest PE protocol [facility] [place] [address] CT Scan Report Signed Patient: Shen Rodriguez MR#: [id number] 561 : 2000 Acct:[id number] Age/Sex: 23 / M ADM Date: 11/27/23 Loc: ER Room: Type: [facility] ER Attending Dr: Copies to: Eduin Geller PA-C Ordering Provider: Eduin Geller PA-C Date of Service: 11/27/23 CT/CT angio chest PE protocol: elevated dimer, chest pain and tachy CTA Chest with PE protocol TECHNIQUE: Axial imaging with 2-D and 3-D reconstruction. 90cc of Isovue-[address] exam was performed using one or more the following dose reduction techniques: Automated exposure control, adjustment of the MA and/or Kv according to patient size, or use of the iterative reconstruction technique. History: Shortness of breath. Elevated d-dimer COMPARISON: None THYROID: Unremarkable TRACHEA AND BRONCHI: Patent ESOPHAGUS: Unremarkable. HEART: Within normal limits PERICARDIAL EFFUSION: None CORONARY ARTERY CALCIFICATION: None MEDIASTINUM: No adenopathy. No pneumoperitoneum. No mediastinal hematoma. PULMONARY SHANEL: No hilar mass or adenopathy is seen. THORACIC AORTA Unremarkable PULMONARY EMBOLUS: Redemonstration of peripheral segmental branches without a definite filling defect. No central pulmonary embolus. LUNG NODULE None LUNGS: Lungs are clear PLEURAL EFFUSION: None PNEUMOTHORAX: No pneumothorax seen. CHEST WALL: No abnormality AXILLA: Unremarkable BONY STRUCTURES Intact UPPER ABDOMEN: Hepatic steatosis. CT/CT angio chest PE protocol IMPRESSION: Limited assessment for distal pulmonary emboli. No central pulmonary embolus. No aortic aneurysm or dissection. No acute chest findings. Impression dictated by: Juan Nobles M.D.11/28/2023 8:52 AM Dictation Location: [place] [address] Transcribed By: [facility] 11/28/23 0852 Dictated By: Juan Nobles DO 11/28/23 0849 Signed By: 11/28/23 0852 Normal [facility] XR chest 2V*on 11-28-2023 XR chest 2V* [facility] [place] [address] [place] [address] XRay Report Signed Patient: Shen Rodriguez MR#: [id number] : 2000 Acct:[id number] Age/Sex: 23 / M ADM Date: 11/27/23 Loc: ER Room: Type: [facility] ER Attending Dr: Copies to: Eduin Geller PA-C Ordering Provider: Eduin Geller PA-C Date of Service: 11/27/23 XR/XR chest 2V*: Shortness of Breath/Dyspnea XR chest 2V* 11/27/2023 7:59 PM SIGNS AND SYMPTOMS: Chest pain, shortness of breath PROTOCOL: Frontal and lateral radiograph of the chest COMPARISON: None FINDINGS: The trachea is midline. The heart and mediastinal structures are within normal limits. The lung parenchyma is clear. The bony thorax is intact. XR/XR chest 2V* IMPRESSION: No acute cardiopulmonary pathology. Impression dictated by: Sarah So M.D.11/28/2023 6:16 AM Dictation Location: [place] [address] Transcribed By: [facility] 11/28/23615 Dictated By: Sarah So II, MD 11/28/23615 Signed By: 11/28/23615 Normal [facility] Alanine aminotransferase [En zymatic activity/volume] in Serum or PlasmaOrdered By: Eduin Geller on 11-27-2023 ALT [Catalytic activity/Vol] 76 U/L 7-52 [facility] Albumin [Mass/volume] in Ser um or Plasma by Bromocresol green (BCG) dye binding methoOrdered By: Eduin Geller on 11-27-2023 Albumin BCG dye [Mass/Vol] 5.0 g/dL 3.5-5.7 [facility] Alkaline phosphatase [Enzyma tic activity/volume] in Serum or PlasmaOrdered By: Eduin Geller on 11-27-2023 ALP [Catalytic activity/Vol] 48 U/L 34-104 [facility] Aspartate aminotransferase [ Enzymatic activity/volume] in Serum or PlasmaOrdered By: Eduin Geller on 11-27-2023 AST [Catalytic activity/Vol] 50 U/L 13-39 [facility] B-Type Natriuretic Peptideon 11-27-2023 Natriuretic peptide B (Bld) [Mass/Vol] 4.0 pg/mL Low 5-100 [facility] Comment on above: Result Comment: PERF ORMED BY: [place] [address] PATHOLOGIST MANAGER NUCLEAR JOBY FORDE M.D. Performed By: #### H S TROP, CBC, DDIMER, BNP, CMP #### [address] Basophils Auto (Bld) [#/Vol] Ordered By: Eduin Geller on 11-27-2023 Basophils (Bld) [#/Vol] 0.1 10*3/uL 0.0-0.2 [facility] Basophils/100 WBC Auto (Bld) Ordered By: Eduin Geller on 11-27-2023 Basophils/100 WBC (Bld) 1.1 % . F [facility] Bilirubin.total [Mass/volume ] in Serum or PlasmaOrdered By: Eduin Geller on 11-27-2023 Bilirubin [Mass/Vol] 0.7 mg/dL 0.3-1.0 [facility] Calcium [Mass/volume] in Ser um or PlasmaOrdered By: Eduin Geller on 11-27-2023 Calcium [Mass/Vol] 10.1 mg/dL 8.6-10.3 [facility] Carbon dioxide, total [Moles /volume] in Serum or PlasmaOrdered By: Eduin Geller on 11-27-2023 CO2 [Moles/Vol] 19.7 mmol/L 21.0-31.0 [facility] Chloride [Moles/volume] in S inessa or PlasmaOrdered By: Eduin Geller on 11-27-2023 Chloride [Moles/Vol] 102 mmol/L 98-107 [facility] Complete Blood Count Auto Di ffon 11-27-2023 Basophils (Bld) [#/Vol] 0.1 10*3/uL Normal 0.0-0.2 [facility] Comment on above: Result Comment: PERF ORMED BY: [place] [address] PATHOLOGIST MANAGER NUCLEAR JOBY FORDE M.D. Performed By: #### H S TROP, CBC, DDIMER, BNP, CMP #### [facility] [address] [place] [address] [place] Basophils/100 WBC (Bld) 1.1 % Normal . T alvarado [facility] Comment on above: Performed By: #### H S TROP, CBC, DDIMER, BNP, CMP #### [facility] [address] [place] [address] [place] Eosinophils (Bld) [#/Vol] 0.5 10*3/uL High 0.0-0.45 [facility] Comment on above: Performed By: #### H S TROP, CBC, DDIMER, BNP, CMP #### [facility] [address] [place] [address] [place] Eosinophils/100 WBC (Bld) 5.6 % Normal . [facility] Comment on above: Performed By: #### H S TROP, CBC, DDIMER, BNP, CMP #### [address] Erythrocyte distribution width (RBC) [Ratio] 12.5 % Normal 12.0-14.8 [facility] Comment on above: Performed By: #### H S TROP, CBC, DDIMER, BNP, CMP #### [address] Hematocrit (Bld) [Volume fraction] 46.7 % Normal 38.8-50.0 [facility] Comment on above: Performed By: #### H S TROP, CBC, DDIMER, BNP, CMP #### [address] Hemoglobin (Bld) [Mass/Vol] 16.4 g/dL Normal 13.0-17.0 [facility] Comment on above: Performed By: #### H S TROP, CBC, DDIMER, BNP, CMP #### [address] Lymphocytes (Bld) [#/Vol] 3.2 10*3/uL Normal 1.00-4.8 [facility] Comment on above: Performed By: #### H S TROP, CBC, DDIMER, BNP, CMP #### [address] Lymphocytes/100 WBC (Bld) 36.3 % Normal . [facility] Comment on above: Performed By: #### H S TROP, CBC, DDIMER, BNP, CMP #### [address] MCH (RBC) [Entitic mass] 33.0 pg Normal 27.5-35.2 [facility] Comment on above: Performed By: #### H S TROP, CBC, DDIMER, BNP, CMP #### [address] MCV (RBC) [Entitic vol] 94.2 fL Normal 83.5-101 T [facility] Comment on above: Performed By: #### H S TROP, CBC, DDIMER, BNP, CMP #### [address] Mean Corpuscular HGB Conc 35.1 g/dL Normal 32.5-35.6 [facility] Comment on above: Performed By: #### H S TROP, CBC, DDIMER, BNP, CMP #### [place] [address] [place] Monocytes (Bld) [#/Vol] 0.9 10*3/uL High 0.0-0.8 [facility] Comment on above: Performed By: #### H S TROP, CBC, DDIMER, BNP, CMP #### [address] Monocytes/100 WBC (Bld) 15.32 % Normal 0.00-20.00 [facility] Comment on above: Performed By: #### H S TROP, CBC, DDIMER, BNP, CMP #### [address] Monocytes/100 WBC (Bld) 9.9 % Normal . [facility] Comment on above: Performed By: #### H S TROP, CBC, DDIMER, BNP, CMP #### [address] Neutrophils (Bld) [#/Vol] 4.2 10*3/uL Normal 1.8-7.7 [facility] Comment on above: Performed By: #### H S TROP, CBC, DDIMER, BNP, CMP #### [place] [address] [place] Neutrophils/100 WBC (Bld) 47.1 % Normal . [facility] Comment on above: Performed By: #### H S TROP, CBC, DDIMER, BNP, CMP #### [address] NRBC% 0.1 /100{WBC} Normal 0-0.5 [facility] Comment on above: Performed By: #### H S TROP, CBC, DDIMER, BNP, CMP #### [address] Platelet mean volume (Bld) [Entitic vol] 8.6 fL Normal 6.6-10.1 [facility] Comment on above: Performed By: #### H S TROP, CBC, DDIMER, BNP, CMP #### [address] Platelets (Bld) [#/Vol] 340 10*3/uL Normal 150-450 [facility] Comment on above: Performed By: #### H S TROP, CBC, DDIMER, BNP, CMP #### [address] RBC (Bld) [#/Vol] 4.96 10*6/uL Normal 3.90-5.60 [facility] Comment on above: Performed By: #### H S TROP, CBC, DDIMER, BNP, CMP #### [address] WBC (Bld) [#/Vol] 8.8 10*3/uL Normal 4.1-10.5 [facility] Comment on above: Performed By: #### H S TROP, CBC, DDIMER, BNP, CMP #### [address] Comprehensive Metabolic Pane radha 11-27-2023 Albumin [Mass/Vol] 5.0 g/dL Normal 3.5-5.7 [facility] Comment on above: Performed By: #### H S TROP, CBC, DDIMER, BNP, CMP #### [address] Albumin/Globulin [Mass ratio] 1.7 {ratio} Normal [facility] Comment on above: Performed By: #### H S TROP, CBC, DDIMER, BNP, CMP #### [address] ALP [Catalytic activity/Vol] 48 U/L Normal 34-104 [facility] Comment on above: Performed By: #### H S TROP, CBC, DDIMER, BNP, CMP #### [address] ALT [Catalytic activity/Vol] 76 U/L High 7-52 [facility] Comment on above: Performed By: #### H S TROP, CBC, DDIMER, BNP, CMP #### [address] Anion gap [Moles/Vol] 18.7 mmol/L High 6.0-15.0 Th e [facility] Comment on above: Performed By: #### H S TROP, CBC, DDIMER, BNP, CMP #### [address] AST [Catalytic activity/Vol] 50 U/L High 13-39 [facility] Comment on above: Performed By: #### H S TROP, CBC, DDIMER, BNP, CMP #### [address] Bilirubin [Mass/Vol] 0.7 mg/dL Normal 0.3-1.0 [facility] Comment on above: Performed By: #### H S TROP, CBC, DDIMER, BNP, CMP #### [address] Calcium [Mass/Vol] 10.1 mg/dL Normal 8.6-10.3 [facility] Comment on above: Performed By: #### H S TROP, CBC, DDIMER, BNP, CMP #### [place] [address] [place] Chloride [Moles/Vol] 102 mmol/L Normal 98-107 [facility] Comment on above: Performed By: #### H S TROP, CBC, DDIMER, BNP, CMP #### [address] CO2 [Moles/Vol] 19.7 mmol/L Low 21.0-31.0 [facility] Comment on above: Performed By: #### H S TROP, CBC, DDIMER, BNP, CMP #### [place] [address] [place] Creatinine [Mass/Vol] 0.92 mg/dL Normal 0.70-1.30 [facility] Comment on above: Performed By: #### H S TROP, CBC, DDIMER, BNP, CMP #### [address] Creatinine Clr Calc Pharmacy 138.99 Normal [facility] Comment on above: Result Comment: PERF ORMED BY: [place] [address] PATHOLOGIST MANAGER NUCLEAR JOBY FORDE M.D. Performed By: #### H S TROP, CBC, DDIMER, BNP, CMP #### [address] GFR/1.73 sq M.predicted MDRD (S/P/Bld) [Vol rate/Area] mL/min/{1.73_m2} Normal [facility] Comment on above: Performed By: #### H S TROP, CBC, DDIMER, BNP, CMP #### [address] Globulin (S) [Mass/Vol] 2.9 g/dL Normal T he [facility] Comment on above: Performed By: #### H S TROP, CBC, DDIMER, BNP, CMP #### [address] Glucose [Mass/Vol] 121 mg/dL High 70-100 [facility] Comment on above: Result Comment: Roll Glucose Reference Range is dependent on time and content of last meal. Glucose of more than 200 mg/dL in a nonstressed, ambulatory subject supports the diagnosis of Diabetes Mellitus. ADA recommended reference range Performed By: #### H S TROP, CBC, DDIMER, BNP, CMP #### [address] Potassium [Moles/Vol] 3.4 mmol/L Low 3.5-5.1 [facility] Comment on above: Performed By: #### H S TROP, CBC, DDIMER, BNP, CMP #### [address] Protein [Mass/Vol] 7.9 g/dL Normal 6.4-8.9 [facility] Comment on above: Performed By: #### H S TROP, CBC, DDIMER, BNP, CMP #### [address] Sodium [Moles/Vol] 137 mmol/L Normal 136-145 [facility] Comment on above: Performed By: #### H S TROP, CBC, DDIMER, BNP, CMP #### [address] Urea nitrogen [Mass/Vol] 9 mg/dL Normal 7-25 [facility] Comment on above: Performed By: #### H S TROP, CBC, DDIMER, BNP, CMP #### [address] Creatinine [Mass/volume] in Serum or PlasmaOrdered By: Eduin Geller on 11-27-2023 Creatinine [Mass/Vol] 0.92 mg/dL 0.70-1.30 [facility] D-Dimer High Sensitivityon 0 11-27-2023 D-Dimer High Sensitivity 275 ng/mL High 0-243 [facility] Comment on above: Result Comment: The reference range for D-dimer is <243 ng/mL D-dimer units. D-dimer results must be used in conjunction with a clinical pretest probability (PTP) assessment model for deep vein thrombosis (DVT) and pulmonary embolism (PE). Results <230 ng/mL d-dimer units can be used as a negative predictor in patients with low or moderate probability for DVT/PE. Results above the exclusion threshold of 230 ng/ml D-dimer units for DVT/PE may indicate the need for further diagnostic testing. D-Dimer can be increased in hospitalized patients due to co-morbid conditions. A hematocrit value greater than 55% may lead to inaccurate results in coagulation testing. Patients having hematocrit values >55% require a special collection tube for coagulation studies. Please contact the laboratory at [phone] for redraw instructions. PERFORMED BY: [place] [address] PATHOLOGIST MANAGER NUCLEAR JOBY FORDE M.D. Performed By: #### H S TROP, CBC, DDIMER, BNP, CMP #### [facility] [address] ECG 12 lead ECGon 11-27-2023 ECG 12 lead ECG [facility] [address] [place] [address] [place] [address] Electrocardiograph Report Signed Patient: Shen Rodriguez MR#: [id number] 561 : 2000 Acct:[id number] Age/Sex: 23 / M ADM Date: 11/27/23 Loc: ER Room: Type: [facility] ER Attending Dr: Ordering Provider: Eduin Geller PA-C Date of Service: 11/27/2307/10/1951 ECG/ECG 12 lead ECG: Shortness of Breath/Dyspnea Copies to: Test Reason : Blood Pressure : 127/080 mmHG Vent. Rate : 087 BPM Atrial Rate : 087 BPM P-R Int : 152 ms QRS Dur : 096 ms QT Int : 372 ms P-R-T Axes : 059 084 045 degrees QTc Int : 447 ms Normal sinus rhythm Normal ECG No previous ECGs available Confirmed by ALINE BORRERO MD ([id number]) on 11/28/2023 1:45:25 AM Referred By: Electronically Signed By:ALINE BORRERO MD Transcribed By: [facility] Signed By Aline Borrero MD 11/15 10/08 0145 Normal [facility] Eosinophils Auto (Bld) [#/Vo l]Ordered By: Eduin Geller on 11-27-2023 Eosinophils (Bld) [#/Vol] 0.5 10*3/uL 0.0-0.45 [facility] Eosinophils/100 WBC Auto (Bl d)Ordered By: Eduin Geller on 11-27-2023 Eosinophils/100 WBC (Bld) 5.6 % . [facility] Erythrocyte distribution wid th Auto (RBC) [Ratio]Ordered By: Eduin Geller on 11-27-2023 Erythrocyte distribution width (RBC) [Ratio] 12.5 % 12.0-14.8 [facility] Fibrin D-dimer [Presence] in Platelet poor plasma by Latex agglutinationOrdered By: Eduin Geller on 11-27-2023 Fibrin D-dimer LA Ql (PPP) 275 ng/mL 0-243 [facility] Comment on above: The reference range for D-dimer is <243 ng/mL D-dimer units.D-dimer results must be used in conjunction with a clinicalpretest probability (PTP) assessment model for deep veinthrombosis (DVT) and pulmonary embolism (PE). Results <230ng/mL d-dimer units can be used as a negative predictor inpatients with low or moderate probability for DVT/PE.Results above the exclusion threshold of 230 ng/ml D-dimerunits for DVT/PE may indicate the need for furtherdiagnostic testing.D-Dimer can be increased in hospitalized patients due toco-morbid conditions.A hematocrit value greater than 55% may lead to inaccurate results in coagulation testing. Patients having hematocrit values >55% require a special collection tube for coagulation studies. Please contact the laboratory at [phone] for redraw instructions. Globulin Calc (S) [Mass/Vol] Ordered By: Eduin Geller on 11-27-2023 Globulin (S) [Mass/Vol] 2.9 g/dL [facility] Glucose [Mass/volume] in Ser um or PlasmaOrdered By: Eduin Geller on 11-27-2023 Glucose [Mass/Vol] 121 mg/dL 70-100 [facility] Comment on above: ADA recommended refe rence rangeRandom Glucose Reference Range is dependent on time and content of last meal. Glucose of more than 200 mg/dL in a nonstressed, ambulatory subject supports the diagnosis of Diabetes Mellitus. Hematocrit Auto (Bld) [Volum e fraction]Ordered By: Eduin Geller on 11-27-2023 Hematocrit (Bld) [Volume fraction] 46.7 % 38.8-50.0 [facility] Hemoglobin [Mass/volume] in BloodOrdered By: Eduin Geller on 11-27-2023 Hemoglobin (Bld) [Mass/Vol] 16.4 g/dL 13.0-17.0 [facility] Leukocytes [#/volume] correc aravind for nucleated erythrocytes in Blood by Automated counOrdered By: Eduin Geller on 11-27-2023 WBC corrected for nucl RBC Auto (Bld) [#/Vol] 8.8 10*3/uL 4.1-10.5 [facility] Lymphocytes Auto (Bld) [#/Vo l]Ordered By: Eduin Geller on 11-27-2023 Lymphocytes (Bld) [#/Vol] 3.2 10*3/uL 1.00-4.8 [facility] Lymphocytes/100 WBC Auto (Bl d)Ordered By: Eduin Geller on 11-27-2023 Lymphocytes/100 WBC (Bld) 36.3 % . [facility] MCH Auto (RBC) [Entitic mass ]Ordered By: Eduin Geller on 11-27-2023 MCH (RBC) [Entitic mass] 33.0 pg 27.5-35.2 [facility] MCHC Auto (RBC) [Mass/Vol]Or dered By: Eduin Geller on 11-27-2023 MCHC (RBC) [Mass/Vol] 35.1 g/dL 32.5-35.6 [facility] MCV Auto (RBC) [Entitic vol] Ordered By: Eduin Geller on 11-27-2023 MCV (RBC) [Entitic vol] 94.2 fL 83.5-101 F [facility] Monocyte distribution width [Entitic volume] in Blood by AutomatedOrdered By: Eduin Geller on 11-27-2023 Monocyte distribution width Auto (Bld) [Entitic vol] 15.32 % 0.00-20.00 [facility] Monocytes Auto (Bld) [#/Vol] Ordered By: Eduin Geller on 11-27-2023 Monocytes (Bld) [#/Vol] 0.9 10*3/uL 0.0-0.8 [facility] Monocytes/100 WBC Auto (Bld) Ordered By: Eduin Geller on 11-27-2023 Monocytes/100 WBC (Bld) 9.9 % . F [facility] Natriuretic peptide B [Mass/ Vol]Ordered By: Eduin Geller on 11-27-2023 Natriuretic peptide B (Bld) [Mass/Vol] 4.0 pg/mL 5-100 [facility] Neutrophils Auto (Bld) [#/Vo l]Ordered By: Eduin Geller on 11-27-2023 Neutrophils (Bld) [#/Vol] 4.2 10*3/uL 1.8-7.7 [facility] Neutrophils/100 WBC Auto (Bl d)Ordered By: Eduin Geller on 11-27-2023 Neutrophils/100 WBC (Bld) 47.1 % . [facility] No Panel InformationOrdered By: Eduin Geller on 11-27-2023 Estimated GFR (CKD-EPI) > 60.0 mL/Min [facility] Creatinine Clearance (Chem 138.99 [facility] Nucleated erythrocytes [Pres ence] in Blood by Automated countOrdered By: Eduin Geller on 11-27-2023 Nucleated RBC Auto Ql (Bld) 0.1 /100{WBC} 0-0.5 [facility] Platelet mean volume Auto (B ld) [Entitic vol]Ordered By: Eduin Geller on 11-27-2023 Platelet mean volume (Bld) [Entitic vol] 8.6 fL 6.6-10.1 [facility] Platelets Auto (Bld) [#/Vol] Ordered By: Eduin Geller on 11-27-2023 Platelets (Bld) [#/Vol] 340 10*3/uL 150-450 [facility] Potassium [Moles/volume] in Serum or PlasmaOrdered By: Eduin Geller on 11-27-2023 Potassium [Moles/Vol] 3.4 mmol/L 3.5-5.1 [facility] Protein [Mass/volume] in Ser um or PlasmaOrdered By: Eduin Geller on 11-27-2023 Protein [Mass/Vol] 7.9 g/dL 6.4-8.9 [facility] RBC Auto (Bld) [#/Vol]Ordere d By: Eduin Geller on 11-27-2023 RBC (Bld) [#/Vol] 4.96 10*6/uL 3.90-5.60 [facility] Serum or plasma albumin/glob ulin mass ratioOrdered By: Eduin Geller on 11-27-2023 Albumin/Globulin [Mass ratio] 1.7 {ratio} [facility] Serum or plasma anion gap de terminationOrdered By: Eduin Geller on 11-27-2023 Anion gap [Moles/Vol] 18.7 mmol/L 6.0-15.0 [facility] Sodium [Moles/volume] in Ser um or PlasmaOrdered By: Eduin Geller on 11-27-2023 Sodium [Moles/Vol] 137 mmol/L 136-145 [facility] Troponin I High Sensitivityo n 11-27-2023 Troponin I High Sensitivity 2.8 pg/mL Normal 0.0-20.0 [facility] Comment on above: Result Comment: PERF ORMED BY: [facility] [address] [place] [address] PATHOLOGIST MANAGER NUCLEAR JOBY FORDE M.D. Performed By: #### H S TROP, CBC, DDIMER, BNP, CMP #### [facility] [address] Troponin I.cardiac [Mass/vol ume] in Serum or Plasma by Detection limit <= 0.01 ng/Ordered By: Eduin Geller on 11-27-2023 Troponin I.cardiac DL <= 0.01 ng/mL [Mass/Vol] 2.8 pg/mL 0.0-20.0 [facility] Urea nitrogen [Mass/volume] in Serum or PlasmaOrdered By: Eduin Geller on 11-27-2023 Urea nitrogen [Mass/Vol] 9 mg/dL 7-25 [facility] WBC Auto (Bld) [#/Vol]Ordere d By: Eduin Geller on 11-27-2023 WBC (Bld) [#/Vol] 8.8 10*3/uL 4.1-10.5 [facility] COVID/FLU RT-PCRon 3 SARS-CoV-2 (COVID-19) RNA DARI+probe Ql (Unsp spec) Negative [facility] Other COVID/FLU RT-PCR Negative [employer] Other Quick Strepon 04-26-2023 S. pyogenes Org specific cx Ql (Throat) Negative [employer] Other Quick Strep [facility] Other Quick Strepon 11-09-2022 S. pyogenes Org specific cx Ql (Throat) Negative [employer] Other Quick Strep [employer] Other CBC AUTO DIFFon 08-16-2022 BASO # 0.1 103/ul Normal 0.0-0.1 [facility] Comment on above: Performed By: #### C BC ####[facility] [address] [place], [place] [address]Dr. John Paul Herrera Basophils/100 WBC (Bld) 1.3 % Normal 0.2-2.[address] [facility] Comment on above: Performed By: #### C BC ####[facility] [address] [place], [place] [address]Dr. John Paul Herrera EO # 0.5 103/ul Normal 0.0-0.7 [facility] Comment on above: Performed By: #### C BC ####[facility] [address] [place], [place] [address]Dr. John Paul Herrera Eosinophils/100 WBC (Bld) 9.5 % Critically high 0.9-7.0 [facility] Comment on above: Performed By: #### C BC ####[facility] [address] [place], [place] [address]Dr. John Paul Herrera Erythrocyte distribution width (RBC) [Ratio] 11.9 % Normal 11.0-15.0 [facility] Comment on above: Performed By: #### C BC ####[facility] [address] [place], [place] [address]Dr. John Paul Herrera Hematocrit (Bld) [Volume fraction] 45.5 % Normal 42.0-54.0 [facility] Comment on above: Performed By: #### C BC ####[facility] [address] [place], [place] [address]Dr. John Paul Herrera Hemoglobin (Bld) [Mass/Vol] 16.0 g/dL Normal 14.0-18.0 [facility] Comment on above: Performed By: #### C BC ####[facility] [address] [place], [place] [address]Dr. John Paul Herrera IG # 0.01 10e3/ul Normal 0.00-0.03 [facility] Comment on above: Performed By: #### C BC ####[facility] [address] [place] [id number]. Mereelsa Herrera IG % 0.2 % Normal 0.0-0.5 [facility] Comment on above: Performed By: #### C BC ####[facility] [address] [place] [id number]. John Paul Herrera LYMPH # 1.6 103/ul Normal 1.2-3.8 [facility] Comment on above: Performed By: #### C BC ####[facility] [address] [place] [address]Dr. Mereelsa Herrera Lymphocytes/100 WBC (Bld) 28.8 % Normal 20.5-60.0 [facility] Comment on above: Performed By: #### C BC ####[facility] [address] [place] [address]Dr. John Paul Herrera MANUAL DIFF REQ NO Normal [facility] Comment on above: Performed By: #### C BC ####[facility] [address] [place] [id number]. John Paul Herrera MCH (RBC) [Entitic mass] 31.4 pg Normal 25.9-34.0 [facility] Comment on above: Performed By: #### C BC ####[facility] [address] [place], [place] [address]Dr. John Paul Herrera MCHC (RBC) [Mass/Vol] 35.2 g/dL Normal 29.9-35.2 [facility] Comment on above: Performed By: #### C BC ####[facility] [address] [place], [place] [address]Dr. John Paul Herrera MCV (RBC) [Entitic vol] 89.2 fL Normal 80.0-94.[address] [facility] Comment on above: Performed By: #### C BC ####[facility] [address] [place], [place] [address]Dr. John Paul Herrera MONO # 0.7 103/ul Normal 0.3-0.8 [facility] Comment on above: Performed By: #### C BC ####[facility] [address] [place] [id number]. John Paul Herrera Monocytes/100 WBC (Bld) 12.0 % Normal 1.7-12.[address] [facility] Comment on above: Performed By: #### C BC ####[facility] [address] [place] [id number]. John Paul Herrera NEUT # 2.7 103/ul Normal 1.4-6.5 [facility] Comment on above: Performed By: #### C BC ####[facility] [address] [place] [address]Dr. John Paul Herrera Neutrophils/100 WBC (Bld) 48.2 % Normal 43.0-75.0 [facility] Comment on above: Performed By: #### C BC ####[facility] [address] [place], [place] [address]Dr. John Paul Herrera Platelet mean volume (Bld) [Entitic vol] 9.5 fL Normal 9.5-13.5 [facility] Comment on above: Performed By: #### C BC ####[facility] [address] [place], [place] [address]Dr. Mereelsa Javier PLT 284 103/ul Normal 150-450 [facility] Comment on above: Performed By: #### C BC ####[facility] [address] [place] [address]Dr. John Paul Herrera RBC 5.10 106/ul Normal 4.70-6.10 [facility] Comment on above: Performed By: #### C BC ####[facility] [address] [place], [place] [address]Dr. John Paul Herrera WBC 5.5 103/ul Normal 4.0-11.0 [facility] Comment on above: Performed By: #### C BC ####[facility] [address] [place] [address]Dr. John Paul Herrera PROF CHEM 8 (BAS METB)on Anion gap [Moles/Vol] 8.9 mmol/L Normal [facility] Comment on above: Performed By: #### H STROPN, BMP, TSH #### [facility] [address] [place] [address] [address] John Paul Herrera Calcium [Mass/Vol] 9.2 mg/dL Normal 8.5-10.1 [facility] Comment on above: Performed By: #### H STROPN, BMP, TSH #### [facility] [address] [address] [address] John Paul Herrera Chloride [Moles/Vol] 104 mmol/L Normal 98-107 [facility] Comment on above: Performed By: #### H STROPN, BMP, TSH #### [facility] [address] [address] [address] John Paul Herrera CO2 [Moles/Vol] 28.7 mmol/L Normal 21.0-32.0 [facility] Comment on above: Performed By: #### H STROPN, BMP, TSH #### [facility] [address] [address] [address] John Paul Herrera Creatinine [Mass/Vol] 0.84 mg/dL Normal 0.70-1.30 [facility] Comment on above: Performed By: #### H STROPN, BMP, TSH #### [facility] [address] [address] [address] John Paul Herrera EGFR-AF DJIBOUTIAN >60 Normal >=60 [facility] Comment on above: Performed By: #### H STROPN, BMP, TSH #### [facility] [address] [address] [address] John Paul Herrera EGFR-NON AF DJIBOUTIAN >60 Normal >=60 [facility] Comment on above: Performed By: #### H STROPN, BMP, TSH #### [facility] [address] [place] [address] [address] John Paul Herrera Glucose [Mass/Vol] 97 mg/dL Normal 74-106 [facility] Comment on above: Performed By: #### H STROPN, BMP, TSH #### [facility] [address] [address] [address] John Paul Herrera Potassium [Moles/Vol] 4.6 mmol/L Normal 3.5-5.1 [facility] Comment on above: Performed By: #### H KIM BMP, TSH #### [facility] [address] [place] [address] [address] John Paul Herrera Sodium [Moles/Vol] 137 mmol/L Normal 136-145 [facility] Comment on above: Performed By: #### H KIM BMP, TSH #### [facility] [address] [address] [address] John Paul Herrera Urea nitrogen [Mass/Vol] 14.0 mg/dL Normal 7.0-18.0 [facility] Comment on above: Performed By: #### H KIM BMP, TSH #### [facility] [address] [address] [address] John Paul Herrera Urea nitrogen/Creatinine [Mass ratio] 16.7 mg/mg Normal [facility] Comment on above: Performed By: #### H KIM BMP, TSH #### [facility] [address] [address] [address] John Paul Herrera TROPONIN, HIGH SENSITIVITYon 08-16-2022 HSTROP 11.0 pg/mL Normal 4.0-76.1 [facility] Comment on above: Result Comment: CUT- OFF POINTS HAVE BEEN ESTABLISHED BASED ON THE FOURTH UNIVERSAL DEFINITIONS OF MYOCARDIAL INFARCTION. THE UPPER REFERENCE LIMIT (URL) OF TROPONIN, DEFINED THE 99TH PERCENTILE OF cTnI DISTRIBUTION IN A REFERENCE POPULATION, HAS BEEN CONFIRMED THE DECISION THRESHOLD FOR DE DIAGNOSIS. Performed By: #### H KIM BMP, TSH ####[facility] [address] [place] [id number]. John Paul Herrera TSHon 08-16-2022 TSH 1.407 uIU/mL Normal 0.358-3.740 [facility] Comment on above: Performed By: #### H KIM BMP, TSH ####[facility] [address] [place] [id number]. John Paul Herrera XR CHEST 1 Von 08-16-2022 XR CHEST 1 V EXAMINATION: XR CHEST 1 V HISTORY: SHORTNESS OF BREATH , chest pain COMPARISON: XR chest 11/04/2021 FINDINGS: LUNGS: No significant pulmonary parenchymal abnormalities. VASCULATURE: No increased pulmonary vasculature. PLEURA: No pneumothorax, effusion, or pleural thickening. CARDIAC: No cardiomegaly or cardiac silhouette abnormality. MEDIASTINUM: No visible mass or adenopathy. BONES: No fracture or visible bone lesion. OTHER: Negative. IMPRESSION: 1. Normal chest x-ray. Electronically authenticated by: PARK GOFF Date: 2022-08-16 16:08 Normal [facility] CARDIAC SARAH 3-6on 2 CK [Catalytic activity/Vol] 318 U/L Critically high 55-170 [facility] Comment on above: Performed By: #### C MREP #### [facility] [address] [place] [address] Dr. John Paul Herrera CK.MB [Mass/Vol] 2.73 ng/mL Critically high <=2.37 [facility] Comment on above: Performed By: #### C MREP #### [facility] [address] [place] [address] Dr. John Paul Herrera HSTROP 10.7 pg/mL Normal 4.0-42.2 [facility] Comment on above: Result Comment: CUT- OFF POINTS HAVE BEEN ESTABLISHED BASED ON THE FOURTH UNIVERSAL DEFINITIONS OF MYOCARDIAL INFARCTION. THE UPPER REFERENCE LIMIT (URL) OF TROPONIN, DEFINED THE 99TH PERCENTILE OF cTnI DISTRIBUTION IN A REFERENCE POPULATION, HAS BEEN CONFIRMED THE DECISION THRESHOLD FOR DE DIAGNOSIS. Performed By: #### C MREP #### [facility] [address] [place] [address] Dr. John Paul Herrera CARDIAC SARAH ADMITon 022 CK [Catalytic activity/Vol] 399 U/L Critically high 55-170 [facility] Comment on above: Result Comment: Test Repeated. Critical Value Verified Performed By: #### ANANYA Christianson MP #### [facility] [address] [place] [address] Dr. John Paul Herrera CK.MB [Mass/Vol] 3.88 ng/mL Critically high <=2.37 [facility] Comment on above: Result Comment: Test Repeated. Critical Value Verified Performed By: #### ANANYA Christianson MP #### [facility] [address] [place] [address] [address] John Paul Herrera HSTROP 9.4 pg/mL Normal 4.0-42.2 [facility] Comment on above: Result Comment: CUT- OFF POINTS HAVE BEEN ESTABLISHED BASED ON THE FOURTH UNIVERSAL DEFINITIONS OF MYOCARDIAL INFARCTION. THE UPPER REFERENCE LIMIT (URL) OF TROPONIN, DEFINED THE 99TH PERCENTILE OF cTnI DISTRIBUTION IN A REFERENCE POPULATION, HAS BEEN CONFIRMED THE DECISION THRESHOLD FOR DE DIAGNOSIS. Performed By: #### B JULIANNE, ANANYA #### [facility] [address] [place] [address] [address] John Paul Herrera ALEXIS 84.0 ng/mL Normal <=121.0 [facility] Comment on above: Performed By: #### B JULIANNE, ANANYA #### [facility] [address] [place] [address] [address] John Paul Herrera CTA CHEST WO W CONon 022 CTA CHEST WO W CON EXAMINATION: CTA CHEST WO W CON HISTORY: CHEST PAIN, UNSPECIFIED COMPARISON: No relevant comparison available. TECHNIQUE: Multi-planar CT images were created with IV contrast. Axial, Coronal, and Sagittal images. Dose reduction techniques were achieved by using automated exposure control and/or adjustment of mA and/or kV according to patient size and/or use of iterative reconstruction technique. 3-D reconstruction was performed on a separate workstation. FINDINGS: VASCULATURE: No pulmonary embolism or abnormal opacity. LUNGS: No visible pulmonary disease. PLEURA: No mass, effusion, or pneumothorax. SHANEL: No mass or adenopathy. MEDIASTINUM: No mass or adenopathy. CARDIAC: No enlargement, pericardial effusion, or pericardial thickening. AORTA: No aneurysm or dissection. CHEST WALL: No mass or axillary adenopathy. BONES: No bone lesion or fracture. LIMITED ABDOMEN: No suspicious findings. Limited images of the upper abdomen. OTHER: Negative. IMPRESSION: 1. No pulmonary embolism. 2. No pulmonary infiltrates. 3. No suspicious findings to account for patient's symptoms. Electronically authenticated by: PARK GOFF Date: 2021-11-04 07:32 Normal [facility] D-DIMERon 11-04-2021 D-DIMER 0.94 mg/L FEU Critically high 0.19-0.50 [facility] Comment on above: Performed By: #### D DIM #### [facility] [address] [place] [address] Dr. John Paul Herrera D-DIMER COMMENTS SEE BELOW Normal [facility] Comment on above: Result Comment: Incr eases in D-Dimer concentration observed with thromboembolic events can be variable due to localization, size, and age of the thrombus. Therefore, a thromboembolic event cannot be diagnosed with certainty on the basis of the reference range. D-Dimers may also be elevated for a variety of disorders including: advanced age, , coronary disease, cancer, liver disease, infection, inflammation, hematoma, DIC, trauma, post-surgery, diabetes, thrombolytic or anticoagulant therapy, stress, and generalized hospitalization. Performed By: #### D DIM #### [facility] [address] [place] [address] Dr. John Paul Herrera PROF CHEM 8 (BAS METB)on Anion gap [Moles/Vol] 15.1 mmol/L Normal [facility] Comment on above: Performed By: #### B ANANYA WHITAKER #### [facility] [address] [place] [address] Dr. John Paul Herrera Calcium [Mass/Vol] 8.7 mg/dL Normal 8.5-10.1 [facility] Comment on above: Performed By: #### ANANYA Christianson MP #### [facility] [address] [place] [address] Dr. John Paul Herrera Chloride [Moles/Vol] 101 mmol/L Normal 98-107 [facility] Comment on above: Performed By: #### B ANANYA WHITAKER #### [facility] [address] [place] [address] Dr. John Paul Herrera CO2 [Moles/Vol] 26.4 mmol/L Normal 22.0-30.0 [facility] Comment on above: Performed By: #### B ANANYA WHITAKER #### [facility] [address] [place] [address] Dr. John Paul Herrera Creatinine [Mass/Vol] 0.90 mg/dL Normal 0.66-1.25 [facility] Comment on above: Performed By: #### B ANANYA WHITAKER #### [facility] [address] [address] [address] John Paul Herrera EGFR-AF DJIBOUTIAN >60 Normal >=60 [facility] Comment on above: Performed By: #### B JULIANNE, GILBERTDM #### [facility] [address] [address] [address] John Paul Herrera EGFR-NON AF DJIBOUTIAN >60 Normal >=60 [facility] Comment on above: Performed By: #### B JULIANNE, ANANYA #### [facility] [address] [address] [address] John Paul Herrera Glucose [Mass/Vol] 108 mg/dL Critically high 74-[address] [facility] Comment on above: Performed By: #### B JULIANNE, ANANYA #### [facility] [address] [address] [address] John Paul Herrera Potassium [Moles/Vol] 3.5 mmol/L Normal 3.4-5.0 [facility] Comment on above: Performed By: #### B ANANYA WHITAKER #### [facility] [address] [address] [address] John Paul Herrera Sodium [Moles/Vol] 139 mmol/L Normal 137-145 [facility] Comment on above: Performed By: #### B GILBERT WHITAKERDM #### [facility] [address] [address] [address] John Paul Herrera Urea nitrogen [Mass/Vol] 8.0 mg/dL Normal 7.0-18.0 [facility] Comment on above: Performed By: #### B GILBERT WHITAKERDM #### [facility] [address] [address] [address] John Paul Herrera Urea nitrogen/Creatinine [Mass ratio] 8.9 mg/mg Normal [facility] Comment on above: Performed By: #### B ANANYA WHITAKER #### [facility] [address] [address] [address] John Paul Herrera XR CHEST 2 Von 11-04-2021 XR CHEST 2 V EXAM: XR CHEST 2 V 11/04/2021 5:14 AM EDT [id number] CLINICAL STATEMENT: Pain COMPARISON: 08/17/2019 TECHNIQUE: Single AP radiograph of the chest is submitted. FINDINGS: There is no acute airspace disease. The cardiac silhouette is normal. The costophrenic recesses are sharp. No pneumothorax. The bony elements are unremarkable. IMPRESSION: No acute cardiopulmonary process. FOLLOW-UP: Follow-up as clinically indicated. Electronically authenticated by: EMERALD PUENTES Date: 2021-11-04 06:11 Normal [facility] XR FOOT LT MIN 3 VIEWSon XR FOOT LT MIN 3 VIEWS EXAM: XR ANKLE LT MIN 3 V, XR FOOT LT MIN 3 VIEWS HISTORY: Injury of ankle COMPARISON: None. TECHNIQUE: 3 views of the left ankle and 3 views of the left foot were obtained. FINDINGS: No acute fracture or dislocation is seen. The joint spaces are preserved. The ankle mortise is congruent. There is no significant left ankle joint effusion. IMPRESSION: 1. No acute fracture or dislocation of the left ankle or left foot is seen. If pain persists, repeat radiographs are recommended in 7-10 days. Electronically authenticated by: Amrik CASTRO Date: 2021-09-30 00:47 Normal [facility] Vital Signs Date Time Vital Sign Value Performing Clinician Facility 11-27-2023 22:46-0400 Diastolic blood pressure 87 mm[Hg] PA-C Eduin Geller Work Phone: [facility] 11-27-2023 22:46-0400 Heart rate 108 /min PALydia Geller Work Phone: [facility] 11-27-2023 22:46-0400 Respiratory rate 20 /min PA-Jaden Geller Work Phone: [facility] 11-27-2023 22:46-0400 SaO2% (BldA) [Mass fraction] 99 % PA-C Eduin Geller Work Phone: [facility] 11-27-2023 22:46-0400 Systolic blood pressure 170 mm[Hg] PA-Jaden Geller Work Phone: [facility] 11-27-2023 19:37-0400 Body height 175.26 cm PA-Jaden Geller Work Phone: [facility] 11-27-2023 19:37-0400 Body temperature 98.2 [degF] SANCHEZHellenJaden Eduin Duyen Work Phone: [facility] 11-27-2023 19:37-0400 Body weight 94.1 kg ALMA Eduingrace Geller Work Phone: [facility] 04-26-2023 16:40-0400 Body height 175.26 cm Stefanie Sotelo Other [facility] Other 04-26-2023 16:40-0400 Body mass index (BMI) [Ratio] 30.51 kg/m2 Stefanie Sotelo Other [facility] Other 04-26-2023 16:40-0400 Body temperature 99.1 [degF] Stefanie Sotelo Other [facility] Other 04-26-2023 16:40-0400 Body weight 93.71 kg Stefanie Sotelo Other [facility] Other 04-26-2023 16:40-0400 Respiratory rate 18 /min Stefanie Sotelo Other [facility] Other 04-26-2023 16:40-0400 SaO2% (BldA) [Mass fraction] 88 % Stefanie Sotelo Other [facility] Other 11-09-2022 18:35-0400 Body height 175.26 cm Stefanie Sotelo Other [facility] Other 11-09-2022 18:35-0400 Body mass index (BMI) [Ratio] 30.57 kg/m2 Stefanie Sotleo Other [facility] Other 11-09-2022 18:35-0400 Body temperature 99.1 [degF] Stefanie Sotelo Other [facility] Other 11-09-2022 18:35-0400 Body weight 93.9 kg Stefanie Sotelo Other [facility] Other 11-09-2022 18:35-0400 Respiratory rate 18 /min Stefanie Sotelo Other [facility] Other 11-09-2022 18:35-0400 SaO2% (BldA) [Mass fraction] 99 % Stefanie Sotelo Other [facility] Other Encounters Encounter Date Encounter Type Care Provider Facility Start: 11-27-2023 End: 11-28-2023 Emergency department patient visit Eduin Geller Facility:[facility] Start: 11-27-2023 End: 11-27-2023 Emergency department patient visit ALMA Geller Work Phone: [facility] Work Phone: Start: 09-06-2023 Non-patient / Non-visit ALMA Geller Work Phone: [facility] Work Phone: Start: 04-26-2023 End: 04-26-2023 ambulatory Stefanie Sotelo Other [facility] Other Start: 04-26-2023 Office outpatient vi sit 25 minutes Stefanie Sotelo [facility] Start: 11-09-2022 End: 11-09-2022 ambulatory Stefanie Sotelo Other [facility] Other Start: 11-09-2022 Office outpatient vi sit 25 minutes Stefanie Sotelo [facility] Start: 08-16-2022 End: 08-16-[address] PARK GOFF Facility:[facility] Start: 11-04-2021 End: 11-04-2021 ambulatory NONE LISTED REQUEST Facility:[facility] Start: 09-30-2021 End: 09-30-[address] SARAH KIM Facility:[facility] Plan of Treatment Date Care Activity Detail Author Start: 11-27-2023 CT angiography of thorax CT an tanya chest PE protocol [facility] Start: 11-27-2023 CT Chest [facility] Start: 11-27-2023 Plain chest X-ray XR chest 2V* [facility] Start: 11-27-2023 X[address] [facility] Patient Education Chest Pain, Ad ult ED Anxiety, Adult ED [facility] Work Phone: Patient referral [facility] Work Phone: Payers Date Payer Category Payer Self-pay [id number] 2000 Unknown [id number] [id number] 1998 Unknown [id number] [id number] [id number] 1998 Unknown [id number] [id number] 1959 Unknown [id number] Unknown [id number] 2.16.8 [id number] Social History Date Type Detail Facility Unknown if ever smoked [facility] Other Sex Assigned At Sex Assigned At Bir th [facility] Other Start: 11-27-2023 Tobacco smoking status NHIS Smoker (finding) [facility] Start: 2000 Sex Assigned At Male F [facility] Evaluation note 04-26-2023 Note Date & Type Note Facility 04-26-2023 Evaluation note Encounter Date Diagnosis Assessment Notes Apr, Suspected COVID-19 virus infection (ICD-10 - Z20.822) Apr, Viral URI with cough (ICD-10 - J06.9) Advised patient that COVID/Influenza A/B PCR test and rapid Strep test was negative today. Advised patient that will treat as viral URI. Supportive care as directed, increase fluids and rest, Tylenol/Motrin as directed, rx of Capmist and Flonase, cool mist humidifier, throat lozenges. Discussed infection control practices such as good hand washing and mask wearing. Patient to follow up with PCP if symptoms persist or worsen despite treatment. Immediate eval for SOB, difficulty breathing, chest pain, fevers that do not break with antipyretic or any other concerning symptoms as reviewed on patient education handout. Patient verbalizes understanding and is agreeable to treatment plan. Patient left in stable condition Apr, Sore throat (ICD-10 - J02.9) [facility] Other Evaluation note 11-09-2022 Note Date & Type Note Facility 11-09-2022 Evaluation note Encounter Date Diagnosis Assessment Notes Oct, Sore throat (ICD-10 - J02.9) Oct, Viral URI with cough (ICD-10 - J06.9) Advised patient that rapid Strep test was negative today. No other testing performed. Advised patient that will treat as viral URI. Supportive care as directed, increase fluids and rest, Tylenol/Motrin as directed, OTC cough/cold remedies as directed on packaging, cool mist humidifier, throat lozenges. Discussed infection control practices such as good hand washing and mask wearing. Work note provided, no extension allowed. Patient to follow up with PCP if symptoms persist or worsen despite treatment. Immediate eval for SOB, difficulty breathing, chest pain, fevers that do not break with antipyretic or any other concerning symptoms as reviewed on patient education handout. Patient verbalizes understanding and is agreeable to treatment plan. Patient left in stable condition. [facility] Other Evaluation note Note Date & Type Note Facility Evaluation note No assessment information [facility] Work Phone: History general Narrative - Reported Note Date & Type Note Facility History general Narrative - Reported Type Surgical History appendectomy 2001 Hospitalization History see above surgical histo ry [facility] [employer] Other Summary Purpose Family History No Family History Records Found Relationship Condition Age at Onset Recorded Date/T tanika Not Specified Heart disease Unknown Advance Directives No Advanced Directives Records Found Advance Directive Response Recorded Date/ Time Advance Directives No October 06, 2 022 3:51pm Chief Complaint and Reason for Visit Chief Complaint panic attack Additional Source Comments (unrecognized sect ion and content) No Status Records FoundNo Status Records Found INFORMATION SOURCE (unrecogn ized section and content) DATE CREATED AUTHOR 08/17/2022 [facility] DATE CREATED AUTHOR AUTHOR'S ORGANIZ ATION 11/28/2023 [facility] REASON FOR VISIT (unrecogniz ed section and content) COUGH, CONGESTION, SORE THRO AT, HEADACHEUPPER RESPITORY, COUGH, PHLEM, EARS Care Teams (unrecognized sec tion and content) Team Status: Active Member Role Status Dates PHYSICIAN NO FAMILY Primary Care Provider Active Team Status: Active Member Role Status Dates NON STAFF Primary Care Provider Active Start: September 06, 2023 Adalberto Calero DO Attending Provider Active Sta rt: September 06, 2023 Team Status: Inactive Member Role Status Dates Eduin Geller PA-C Emergency Provider Active Start: November 27, 2023 End: November 27, 2023 PHYSICIAN NO FAMILY Primary Care Provider Active Start: November 27, 2023 End: November 27, 2023 Goals (unrecognized section and content) Goals may be documented in a n alternate section FOR RECORDS PERTAINING TO PATIENTS WHO ARE OR HAVE BEEN ENROLLED IN A CHEMICAL DEPENDENCY/SUBSTANCEABUSE PROGRAM, SOME INFORMATION MAY BE OMITTED. This clinical summary was aggregated from multiple sources. Caution should be exercised in using it in the provision of clinical care. This summary normalizes information from multiple sources, and as a consequence, information in this document may materially change the coding, format and clinical context of patient data. In addition, data may be omitted in some cases. CLINICAL DECISIONS SHOULD BE BASED ON THE PRIMARY CLINICAL RECORDS. [email or web address] [facility]. provides no warranty or guarantee of the accuracy or completeness of information in this document.
[2023-12-02 12:18] VITALS: PULSE 82
[2023-12-02 12:30] VITALS: PULSE 77
[2023-12-02 12:40] VITALS: PULSE 81
[2023-12-02 12:50] VITALS: PULSE 74
[2023-12-02 13:15] VITALS: BP 134/77; PULSE 76; O2SAT 99
--- NOTE | 2023-12-02 13:35 | ED.GENADUL1 ---
HPI HPI - General Adult General Chief complaint: Neck Pain/Injury Stated complaint: BLURRED VISION, NECK PAIN Time Seen by Provider: 12/02/23 12:28 Source: patient Mode of arrival: walk-in History of Present Illness HPI narrative: Patient is a 23-year-old male who is presenting to the ER with chief complaint of bilateral intermittent sided neck pain, a warm flushed feeling to the left side of his neck and left trapezius muscle, and seeing small spots to the lower vision field that would only last about 10 seconds, did happen approximately 5-8 times today. Patient has no strokelike signs or symptoms. Patient chief concern is that he is having a stroke. Patient has no headache, no current neck pain. No chest pain or shortness of breath. Patient thinks he might be having anxiety and panic attack, patient does not have a history of panic attacks per his history. However patient did tell me Cook RN that he was sitting in the car for about 4045 minutes prior to coming to the emergency room to try to calm himself down to see if he felt better or not. When patient did check into the ER, he was feeling better. Patient states he has been having some mild constipation concerns, wondering if constipation would be causing any neck pain. Patient has no other acute complaints. Patient has not seen a eye physician for many years, he does not wear contacts or glasses. All systems are negative except as noted/marked. All systems reviewed and otherwise negative. Nurses note and vital signs reviewed and patient is not hypoxic. General: The patient appears well and in no apparent distress. Patient is resting comfortably on cart. Patient is not toxic, lethargic, or listless Skin: Warm, dry, no pallor noted. There is no rash noted. No petechiae, purpura. Head: Normocephalic, atraumatic; patient has no tenderness to palpation to midline or bilateral paracervical soft tissue. Patient has full range of motion of cervical spine with no difficulty. No meningeal signs or symptoms. Eye: Normal conjunctiva, no drainage, EOMI. PERRL. 4/2 equal, bilateral. Ears, Nose, Mouth, and Throat: oral mucosa is moist. Nares patent. Mouth without vesicles. Cardiovascular: Regular Rate and Rhythm, no murmur, gallop, rub Respiratory: Patient is in no distress, no accessory muscle use, lungs are clear to auscultation, no wheezing, rales or rhonchi Back: non-tender, no CVA tenderness bilaterally to percussion. No CT LS midline pain GI: no tenderness to palpation, no masses appreciated. No rebound, guarding, or rigidity noted. No distention Musculoskeletal: Patient has full range of motion of all of the extremities, no motor, sensory, or focal neurological deficits Neurological: A&O x4, normal speech; no strokelike signs or symptoms. NIH 0. Psychiatric: Cooperative Related Data Home Medications ?Medication ?Instructions ?Recorded ?Confirmed No Known Home Medications 09/06/23 12/02/23 Allergies Allergy/AdvReac Type Severity Reaction Status Date / Time No Known Drug Allergies Allergy Verified 02/23/23 17:33 Opioid HPI Opioid Management Most Recent Opioid Data: Last ED Pain Assessment 12/02/23 12:14 PFSH PFS Social History Smoking status: Current every day smoker Exam Constitutional Vital Signs, click to edit/add: Last Vital Signs Temp 98 F 12/02/23 12:00 Pulse 76 12/02/23 13:15 Resp 16 12/02/23 13:15 BP 134/77 12/02/23 13:15 Pulse Ox 99 12/02/23 13:15 O2 Del Method Room Air 12/02/23 13:15 Course Vital Signs Vital signs: Vital Signs Temperature 98 F 12/02/23 12:00 Pulse Rate 78 12/02/23 12:00 Respiratory Rate 20 12/02/23 12:00 Blood Pressure 120/85 12/02/23 12:00 Pulse Oximetry 100 12/02/23 12:00 Oxygen Delivery Method Room Air 12/02/23 12:00 Temperature 98 F 12/02/23 12:00 Pulse Rate 76 12/02/23 13:15 Respiratory Rate 16 12/02/23 13:15 Blood Pressure 134/77 12/02/23 13:15 Pulse Oximetry 99 12/02/23 13:15 Oxygen Delivery Method Room Air 12/02/23 13:15 Medical Decision Making MDM Narrative Medical decision making narrative: Patient has no signs of stroke. Education was done on stroke at bedside. Patient visual acuity was left eye 20/25, right eye is 20/25, both eyes 20/20. Patient has no neck pain at this time. Patient has no meningeal signs or symptoms. Patient has benign exam. Patient was given PCP list to follow-up with. Patient has no acute need for testing at this time. Patient may have underlying anxiety, undiagnosed. Patient says he is never had a panic attack before. No other questions at this time Discharge Plan Discharge Stand Alone Forms: Work/School Release, Portal Instructions Chief Complaint: Neck Pain/Injury Clinical Impression: Vision changes, Situational anxiety, Cervical pain (neck) Patient Disposition: Home, Self-Care Time of Disposition Decision: 13:32 Condition: Fair Prescriptions / Home Meds: No Action No Known Home Medications Print Language: Luxembourgish Instructions: Blurred Vision (ED), Anxiety (ED), Stroke (DC), Chronic Neck Pain (DC) Additional Instructions: Follow-up with with an eye physician for complete eye evaluation as discussed. Strokelike signs and symptoms were discussed at bedside and on discharge paperwork. Stroke information was given to you for education, you have no strokelike signs or symptoms today. Follow-up with PCP. Work note given Your vision was within normal limits. Referrals: Physician,Non-Staff, MD [Primary Care Provider] - 1 week
== END 2023-12-02 14:00 | disposition home or self-care (01) ==
PROVIDERS: Emergency Provider Emergency Medicine
DX: M54.2 Cervicalgia (principal); H53.9 Unspecified visual disturbance; F41.8 Other specified anxiety disorders; F17.210 Nicotine dependence, cigarettes, uncomplicated
CPT/HCPCS: 99282

== ENCOUNTER 2024-07-20 08:32 | Emergency (ER) | payer OTHER, SELFPAY ==
[2024-07-20] VITALS (26 sets, daily range): BP systolic 122–143; BP diastolic 72–98; PULSE 66–102; TEMP 36.4; O2SAT 97–100; BMI 29.5
--- NOTE | 2024-07-20 08:54 | XR_ITS ---
[address] [address] Patient Name: BEV MORROW MRN: [id number] date: 2000 Sex: M Assigned Patient Location: ER Current Patient Location: ER Accession/Order Number: [id number] Exam Date: 07/20/2024 09:00 Report Date: 07/20/2024 09:32 At the request of: HARLEEN BROWN Procedure: XR chest 2V EXAMINATION: XR chest 2V HISTORY: cp COMPARISON: No relevant comparison available. TECHNIQUE: PA and lateral FINDINGS: LUNGS: No significant pulmonary parenchymal abnormalities. VASCULATURE: No increased pulmonary vasculature. PLEURA: No pneumothorax, effusion, or pleural thickening. CARDIAC: No cardiomegaly or cardiac silhouette abnormality. MEDIASTINUM: No visible mass or adenopathy. BONES: No fracture or visible bone lesion. OTHER: Negative. XR/XR chest 2V IMPRESSION: No acute cardiopulmonary process Electronically authenticated by: HENRIQUE MCPHERSON Date: 07/20/2024 09:32
--- NOTE | 2024-07-20 08:54 | ECG_ITS ---
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
--- NOTE | 2024-07-20 08:58 | ED.GENADUL1 ---
HPI HPI - General Adult General Chief complaint: Chest Pain Stated complaint: CHEST PAIN Time Seen by Provider: 07/20/24 08:49 Source: patient Mode of arrival: walk-in Limitations: no limitations History of Present Illness HPI narrative: Patient is a 24-year-old male who is presenting to the ER today with chief complaint of left upper chest pain, left shoulder pain that started 2 evenings ago. Patient has no cardiac history. Patient does smoke and vape. Patient also drinks anywhere from 6-12 beers a day. Patient does smoke marijuana intermittently, does not use any cocaine or any other illicit drugs. Patient does admit to underlying anxiety/subconscious anxiety. Patient states with daily alcohol use for several years, patient has not gone through withdrawal or DTs previously. 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 Patient has no rash. Patient does state he initially has heartburn, acid reflux. Patient stated he was laying in bed earlier this morning, for 3 hours, and felt like his heart was racing. Patient was not sure if this was some conscious anxiety or symptoms, so patient came into the ER for evaluation. All systems are negative except as noted/marked. All systems reviewed and otherwise negative. Nurses note and vital signs reviewed and patient is not hypoxic. General: The patient appears well and in no apparent distress. Patient is resting comfortably on cart. Patient is not toxic, lethargic, or listless Skin: Warm, dry, no pallor noted. There is no rash noted. No petechiae, purpura. Head: Normocephalic, atraumatic Eye: Normal conjunctiva, no drainage, EOMI. PERRL Ears, Nose, Mouth, and Throat: oral mucosa is moist. Nares patent. Mouth without vesicles. Cardiovascular: Regular Rate and Rhythm, no murmur, gallop, rub; no reproducible tenderness to palpation to bilateral anterior, lateral, posterior chest wall Respiratory: Patient is in no distress, no accessory muscle use, lungs are clear to auscultation, no wheezing, rales or rhonchi Back: non-tender, no CVA tenderness bilaterally to percussion. No CT LS midline pain GI: No midepigastric tenderness to palpation, no tenderness to palpation, no masses appreciated. No rebound, guarding, or rigidity noted. No distention Musculoskeletal: Patient has full range of motion of all of the extremities, no motor, sensory, or focal neurological deficits Neurological: A&O x4, normal speech Psychiatric: Cooperative, patient does admit to underlying subconscious anxiety. Related Data Home Medications ?Medication ?Instructions ?Recorded ?Confirmed No Known Home Medications 09/06/23 12/02/23 Allergies Allergy/AdvReac Type Severity Reaction Status Date / Time No Known Drug Allergies Allergy Verified 02/23/23 17:33 Opioid HPI Opioid Management Most Recent Opioid Data: Last Pain Scale 1 07/20/24 08:48 07/20/24 [facility] Social History Smoking status: Current every day smoker Exam Constitutional Vital Signs, click to edit/add: Last Vital Signs Temp 97.6 F 07/20/24 08:34 Pulse 67 07/20/24 09:30 Resp 18 07/20/24 09:30 BP 131/98 H 07/20/24 09:00 Pulse Ox 97 07/20/24 09:00 O2 Del Method Room Air 07/20/24 08:48 Course Vital Signs Vital signs: Vital Signs Temperature 97.6 F 07/20/24 08:34 Pulse Rate 68 07/20/24 08:34 Respiratory Rate 16 07/20/24 08:34 Blood Pressure 143/96 H 07/20/24 08:34 Pulse Oximetry 100 07/20/24 08:34 Temperature 97.6 F 07/20/24 08:34 Pulse Rate 67 07/20/24 09:30 Respiratory Rate 18 07/20/24 09:30 Blood Pressure 131/98 H 07/20/24 09:00 Pulse Oximetry 97 07/20/24 09:00 Oxygen Delivery Method Room Air 07/20/24 08:48 Medical Decision Making MDM Narrative Medical decision making narrative: Patient initial EKG was not accurate. 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 Repeat EKG was accurate, no acute ST changes. Patient initial troponin was negative, D-dimer was positive. Patient went for CT of the chest, second troponin has been drawn as well. Patient was given aspirin prophylactically. Second troponin and CT of the chest with no acute findings. Patient had education done at bedside in his discharge paper. Patient may have had underlying subchondral anxiety this morning which he believes was the root of his problem with palpitations. He will follow-up with PCP for additional outpatient testing. No question at discharge. CT of the chest shows fatty liver, no other acute findings. A copy of the CT report was given to the patient, education on fatty liver disease was done. 2 troponins negative. Patient will follow-up with PCP. Patient aware of daily alcohol use could be leading to fatty liver and possible cirrhosis or cancer in the future. Patient understands this. Patient followed with PCP if he continues having any type of chest pain or any other acute concerns. Patient was given strict return precautions. No questions discharge Lab Data Labs: Lab Results 07/20/24 07/20/24 Range/Units 08:41 10:08 WBC 9.0 (4.0-11.0) 10^3/uL RBC 5.27 (4.70-6.10) 10^6/uL Hgb 17.0 (14.0-18.0) g/dL Hct 48.9 (42.0-54.0) % MCV 92.8 (80.0-94.0) fL MCH 32.3 (25.9-34.0) pg MCHC 34.8 (29.9-35.2) g/dL RDW 11.6 (11.0-15.0) % Plt Count 311 (150-450) 10^3/uL MPV 10.1 (9.5-13.5) fL Neut % (Auto) 43.0 (43.0-75.0) % Lymph % (Auto) 31.0 (20.5-60.0) % Snyder % (Auto) 14.5 H (1.7-12.0) % Eos % (Auto) 10.3 H (0.9-7.0) % Baso % (Auto) 1.0 (0.2-2.0) % Neut # (Auto) 3.9 (1.4-6.5) 10^3/uL Lymph # (Auto) 2.8 (1.2-3.8) 10^3/uL Snyder # (Auto) 1.3 H (0.3-0.8) 10^3/uL Eos # (Auto) 0.9 H (0.0-0.7) 10^3/uL Baso # (Auto) 0.1 (0.0-0.1) 10^3/uL Abs Immat Gran (auto) 0.02 (0.00-0.03) 10^3/uL Imm/Tot Granulo (auto) 0.2 (0.0-0.5) % D-Dimer 0.83 H* (<=0.59) mg/L FEU Sodium 136 (136-145) mmol/L Potassium 4.2 (3.5-5.1) mmol/L Chloride 101 (98-107) mmol/L Carbon Dioxide 25.7 (21.0-32.0) mmol/L Anion Gap 13.5 BUN 15.0 (7.0-18.0) mg/dL Creatinine 0.97 (0.70-1.30) mg/dL Est GFR ( Amer) >60 (>=60 mL/min/1.73m^2) Est GFR (Non-Af Amer) >60 (>=60 mL/min/1.73m^2) BUN/Creatinine Ratio 15.5 Glucose 88 (74-106) mg/dL Calcium 9.5 (8.5-10.1) mg/dL Total Bilirubin 0.9 (0.2-1.0) mg/dL AST 47 H (15-37) U/L ALT 99 H (16-63) U/L Alkaline Phosphatase 58 (46-116) U/L Troponin I High Sens 9.7 8.9 (4.0-76.1) pg/mL Total Protein 7.6 (6.4-8.2) g/dL Albumin 4.1 (3.4-5.0) g/dL Globulin 3.5 g/dL Albumin/Globulin Ratio 1.2 ECG Data Attestation: I personally reviewed and interpreted this ECG as follows: (EKG interpretation. Normal sinus rhythm at 68 beats a minute. Patient has diffuse T wave inversion, EKG reading junctional rhythm versus early repolarization. Diffuse [address] elevation, no significant changes. When compared to EKG on September 06, 2023, patient did not have changes noted on toda) Interpretation: Repeat EKG. #2. Repeat EKG, leads were readjusted by Mackenzie CALVERT at 0900, EKG is now normal-appearing. Normal sinus rhythm at 77 beats a minute. Normal axis deviation. QTc of 432. No acute ST elevation noted. No T wave inversion, no diffuse ST elevation, lead III sticker was not on appropriately, this EKG shows no acute findings. EKG #2 this is. Discharge Plan Discharge Chief Complaint: Chest Pain Clinical Impression: Chest pain Patient Disposition: Home, Self-Care Time of Disposition Decision: 11:50 Condition: Fair Prescriptions / Home Meds: No Action No Known Home Medications Print Language: Gibraltarian Instructions: Chest Pain (ED), Non-Alcoholic Fatty Liver Disease (ED) Additional Instructions: If symptoms continue, follow-up with PCP for further outpatient cardiac testing if indicated. A copy of your CT report has been given to you, no acute findings. There is fatty liver disease that is noted. Follow-up with PCP, education on fatty liver was done at bedside and on discharge paperwork. Return if you are having heavy pressure, extreme shortness of breath, passing out, nausea and vomiting, or any other acute complaints. Referrals: Physician,Non-Staff, MD [Primary Care Provider] - 1 week
[2024-07-20] MEDS: ASPIRIN 81 MG TAB.CHEW 162 MG PO (08:59)
--- NOTE | 2024-07-20 09:01 | ECG_ITS ---
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
[2024-07-20 09:07] LABS: Basophils Absolute Auto 0.1 10^3/uL (0.0-0.1); Eosinophils Absolute Auto 0.9 10^3/uL (0.0-0.7); Eosinophils Percent Auto 10.3 % (0.9-7.0); Hematocrit 48.9 % (42.0-54.0); Immature Granulocytes Abs Auto 0.02 10^3/uL (0.00-0.03); Immature Granulocytes Pct Auto 0.2 % (0.0-0.5); Lymphocytes Absolute Auto 2.8 10^3/uL (1.2-3.8); Mean Corpuscular HGB Conc 34.8 g/dL (29.9-35.2); Mean Corpuscular Hemoglobin 32.3 pg (25.9-34.0); Mean Corpuscular Volume 92.8 fL (80.0-94.0); Mean Platelet Volume 10.1 fL (9.5-13.5); Monocytes Absolute Auto 1.3 10^3/uL (0.3-0.8); Monocytes Percent Auto 14.5 % (1.7-12.0); Neutrophils Absolute Auto 3.9 10^3/uL (1.4-6.5); Platelet Count 311 10^3/uL (150-450); Red Blood Count 5.27 10^6/uL (4.70-6.10); Red Cell Distribution Width 11.6 % (11.0-15.0)
--- OUTSIDE RECORDS SUMMARY | 2024-07-20 09:08 | XMS_ITS | CCD ---
Author Organization [facility] CliniSymt Care Team Providers Care [employer] Specialist Name Role Phone DR SARAH KIM Admitting Unavailable JULIO, DR SARAH Regalado Attending Unavailable JULIO, DR SARAH Regalado Consulting Unavailable ECHO CASTRO Consulting Unavailable REQUEST, NONE LISTED Primary Care Unavaila nathan RODRIGUEZ, JUAN JOSE Admitting Unavailable MICHAEL, JUAN JOSE Attending Unavailable DENVER, DR PARK Regalado Consulting Unavailable NILE, DR BERRIOS Consulting Unavailable MICHAEL, JUAN JOSE Consulting Unavailable EMERALD PUENTES Consulting Unavailable DENVER, DR PARK Regalado Consulting Unavailable MARANDA, NONE LISTED Primary Care Unavaila TREV Gary Attending Unavailable ANAND [place], TREV Admitting Unavailable SANCHEZ BUI Consulting Unavailable Stefanie Sotelo Unavailable ALMA Geller Emergency Provider [phone] NO FAMILY, PHYSICIAN Primary Care Provider Unava ilable Eduin Geller Attending Unavailable Eduin Geller Admitting Unavailable NO FAMILY, PHYSICIAN Primary Care Unavailable Medications Current Medications Medication Drug Class(es) Dates Sig (Normalized) Sig (Original) dextromethorphan hydrobromide 15 mg / guaiFENesin 400 mg / pseudoephedrine hydrochloride 60 mg oral tablet (1 source) alpha-Adrenergic Agonist, Uncompetitive U-qgvvlc-B-aspartate Receptor Antagonist, Sigma-1 Agonist Start: 04-26-2023 take [...] a day for 14 day(s) Apr, Active naproxen 500 mg oral tablet (2 sources) Nonsteroidal Anti-inflammatory Drug Start: 12-19-2023 take 500 mg by mouth twice daily Naproxen Active 500 MG PO Twice daily December 19, 2023 12:00am Problems Active Problems Problem Classification Problem Date Documented Da te Episodic/Chronic Anxiety disorders (3 sources) Anxiety; Translations: [Anxiety disorder, unspecified] 11-27-2023 Chronic Cardiac dysrhythmias (8 sources) Palpitations; Translations: [Tachycardia, unspecified] Onset: 11-04-2021 Episodic Nonspecific chest pain (4 sources) Chest pain; Translations: [Chest pain, unspecified] Onset: 11-27-2023 11-27-2023 Episodic Other upper respiratory infections (4 sources) Acute pharyngitis, unspecified; Translations: [Acute upper respiratory infection, unspecified] Episodic Sprains and strains (3 sources) Sprain of wrist; Translations: [Unspecified sprain of unspecified wrist, initial encounter] 02-14-2024 Episodic Substance-related disorders (1 source) Nicotine dependence, [...] protocolon 11-28-2023 CT angio chest PE protocol [facility] [place] [address] CT Scan Report Signed Patient: Shen Rodriguez MR#: [id number] : 2000 Acct:[id number] Age/Sex: 23 / M ADM Date: 11/27/23 Loc: ER Room: Type: [facility] ER Attending Dr: Copies to: Eduin Geller [...] No acute chest findings. Impression dictated by: Jaun Nobles M.D.11/28/2023 8:52 AM Dictation Location: [place] [address] Transcribed By: [facility] 11/28/23 0852 Dictated By: Juan Nobles DO 11/28/23 0849 Signed By: 11/28/23 0852 Normal [facility] XR chest 2V*on 11-28-2023 XR chest 2V* [facility] [place] [address] [place] [address] XRay Report Signed Patient: Shen Rodriguez MR#: [id number] : 2000 Acct:[id number] Age/Sex: 23 / M ADM Date: 11/27/23 Loc: ER Room: Type: [facility] ER Attending Dr: Copies to: Eduin Geller [...] Sarah So M.D.11/28/2023 6:16 AM Dictation Location: [place] [address] Transcribed By: NGOZI 11/28/23615 Dictated By: Sarah So II, MD 11/28/23615 Signed By: 11/28/23615 Normal [facility] Alanine aminotransferase [En zymatic activity/volume] in Serum or PlasmaOrdered By: Eduin Geller on 11-27-2023 ALT [Catalytic activity/Vol] 76 U/L High 7-52 [facility] Albumin [Mass/volume] in Ser um or Plasma by Bromocresol green (BCG) dye binding methoOrdered By: Eduin Geller on 11-27-2023 Albumin BCG dye [Mass/Vol] 5.0 g/dL 3.5-5.7 [facility] Alkaline phosphatase [Enzyma tic activity/volume] in Serum or PlasmaOrdered By: Eduin Geller on 11-27-2023 ALP [Catalytic activity/Vol] 48 U/L 34-104 [facility] Aspartate aminotransferase [ Enzymatic activity/volume] in Serum or PlasmaOrdered By: Eduin Geller on 11-27-2023 AST [Catalytic activity/Vol] 50 U/L High 13-39 [facility] B-Type Natriuretic Peptideon 11-27-2023 Natriuretic peptide B (Bld) [Mass/Vol] 4.0 pg/mL Low 5-100 [facility] Comment on above: Result Comment: PERF ORMED BY: [facility] [address] [place] [address] PATHOLOGIST BROADCAST JOURNALIST JOBY FORDE M.D. Performed By: #### H S TROP, CBC, DDIMER, BNP, CMP #### [facility] [address] Basophils Auto (Bld) [#/Vol] Ordered By: Eduin Geller on 11-27-2023 Basophils (Bld) [#/Vol] 0.1 10*3/uL 0.0-0.2 [facility] Basophils/100 WBC Auto (Bld) Ordered By: Eduin Geller on 11-27-2023 Basophils/100 WBC (Bld) 1.1 % . [facility] Bilirubin.total [Mass/volume ] in Serum or PlasmaOrdered By: Eduin Geller on 11-27-2023 Bilirubin [Mass/Vol] 0.7 mg/dL 0.3-1.0 [facility] Calcium [Mass/volume] in Ser um or PlasmaOrdered By: Eduin Geller on 11-27-2023 Calcium [Mass/Vol] 10.1 mg/dL 8.6-10.3 [facility] Carbon dioxide, total [Moles /volume] in Serum or PlasmaOrdered By: Eduin Geller on 11-27-2023 CO2 [Moles/Vol] 19.7 mmol/L Low 21.0-31.0 [facility] Chloride [Moles/volume] in S inessa or PlasmaOrdered By: Eduin Geller on 11-27-2023 Chloride [Moles/Vol] 102 mmol/L 98-107 [facility] Complete Blood Count Auto Di ffon 11-27-2023 Basophils (Bld) [#/Vol] 0.1 10*3/uL Normal 0.0-0.2 [facility] Comment on above: Result Comment: PERF ORMED BY: [facility] [address] [place] [address] PATHOLOGIST BROADCAST JOURNALIST JOBY FORDE M.D. Performed By: #### H S TROP, CBC, DDIMER, BNP, CMP #### [facility] [address] Basophils/100 WBC (Bld) 1.1 % Normal . [facility] Comment on above: Performed By: #### H S TROP, CBC, DDIMER, BNP, CMP #### [address] Eosinophils (Bld) [#/Vol] 0.5 10*3/uL High 0.0-0.45 [facility] Comment on above: Performed By: #### H S TROP, CBC, DDIMER, BNP, CMP #### [address] Eosinophils/100 WBC (Bld) 5.6 % Normal . [facility] Comment on above: Performed By: #### H S TROP, CBC, DDIMER, BNP, CMP #### [address] Erythrocyte distribution width (RBC) [Ratio] 12.5 % Normal 12.0-14.8 [facility] Comment on above: Performed By: #### H S TROP, CBC, DDIMER, BNP, CMP #### [address] Hematocrit (Bld) [Volume fraction] 46.7 % Normal 38.8-50.0 [facility] Comment on above: Performed By: #### H S TROP, CBC, DDIMER, BNP, CMP #### [address] Hemoglobin (Bld) [Mass/Vol] 16.4 g/dL Normal 13.0-17.0 [facility] Comment on above: Performed By: #### H S TROP, CBC, DDIMER, BNP, CMP #### [address] Lymphocytes (Bld) [#/Vol] 3.2 10*3/uL Normal 1.00-4.8 [facility] Comment on above: Performed By: #### H S TROP, CBC, DDIMER, BNP, CMP #### [address] Lymphocytes/100 WBC (Bld) 36.3 % Normal . [facility] Comment on above: Performed By: #### H S TROP, CBC, DDIMER, BNP, CMP #### [place] [address] [place] MCH (RBC) [Entitic mass] 33.0 pg Normal 27.5-35.2 [facility] Comment on above: Performed By: #### H S TROP, CBC, DDIMER, BNP, CMP #### [address] MCV (RBC) [Entitic vol] 94.2 fL Normal 83.5-101 [facility] Comment on above: Performed By: #### H S TROP, CBC, DDIMER, BNP, CMP #### [address] Mean Corpuscular HGB Conc 35.1 g/dL Normal 32.5-35.6 [facility] Comment on above: Performed By: #### H S TROP, CBC, DDIMER, BNP, CMP #### [address] Monocytes (Bld) [#/Vol] 0.9 10*3/uL High 0.0-0.8 [facility] Comment on above: Performed By: #### H S TROP, CBC, DDIMER, BNP, CMP #### [address] Monocytes/100 WBC (Bld) 15.32 % Normal 0.00-20.00 [facility] Comment on above: Performed By: #### H S TROP, CBC, DDIMER, BNP, CMP #### [place] [address] [place] Monocytes/100 WBC (Bld) 9.9 % Normal . [facility] Comment on above: Performed By: #### H S TROP, CBC, DDIMER, BNP, CMP #### [place] [address] [place] Neutrophils (Bld) [#/Vol] 4.2 10*3/uL Normal 1.8-7.7 [facility] Comment on above: Performed By: #### H S TROP, CBC, DDIMER, BNP, CMP #### [place] [address] [place] Neutrophils/100 WBC (Bld) 47.1 % Normal . [facility] Comment on above: Performed By: #### H S TROP, CBC, DDIMER, BNP, CMP #### [address] NRBC% 0.1 /100{WBC} Normal 0-0.5 [facility] Comment on above: Performed By: #### H S TROP, CBC, DDIMER, BNP, CMP #### [address] Platelet mean volume (Bld) [Entitic vol] 8.6 fL Normal 6.6-10.1 [facility] Comment on above: Performed By: #### H S TROP, CBC, DDIMER, BNP, CMP #### [address] Platelets (Bld) [#/Vol] 340 10*3/uL Normal 150-450 [facility] Comment on above: Performed By: #### H S TROP, CBC, DDIMER, BNP, CMP #### [address] RBC (Bld) [#/Vol] 4.96 10*6/uL Normal 3.90-5.60 [facility] Comment on above: Performed By: #### H S TROP, CBC, DDIMER, BNP, CMP #### [address] WBC (Bld) [#/Vol] 8.8 10*3/uL Normal 4.1-10.5 [facility] Comment on above: Performed By: #### H S TROP, CBC, DDIMER, BNP, CMP #### [address] Comprehensive Metabolic Pane radha 11-27-2023 Albumin [Mass/Vol] 5.0 g/dL Normal 3.5-5.7 [facility] Comment on above: Performed By: #### H S TROP, CBC, DDIMER, BNP, CMP #### [address] [address] [place] Albumin/Globulin [Mass ratio] 1.7 {ratio} Normal [facility] Comment on above: Performed By: #### H S TROP, CBC, DDIMER, BNP, CMP #### [address] ALP [Catalytic activity/Vol] 48 U/L Normal 34-104 [facility] Comment on above: Performed By: #### H S TROP, CBC, DDIMER, BNP, CMP #### [address] ALT [Catalytic activity/Vol] 76 U/L High 7-52 [facility] Comment on above: Performed By: #### H S TROP, CBC, DDIMER, BNP, CMP #### [address] Anion gap [Moles/Vol] 18.7 mmol/L High 6.0-15.0 [facility] Comment on above: Performed By: #### H S TROP, CBC, DDIMER, BNP, CMP #### [address] AST [Catalytic activity/Vol] 50 U/L High 13-39 [facility] Comment on above: Performed By: #### H S TROP, CBC, DDIMER, BNP, CMP #### [address] Bilirubin [Mass/Vol] 0.7 mg/dL Normal 0.3-1.0 [facility] Comment on above: Performed By: #### H S TROP, CBC, DDIMER, BNP, CMP #### [address] Calcium [Mass/Vol] 10.1 mg/dL Normal 8.6-10.3 [facility] Comment on above: Performed By: #### H S TROP, CBC, DDIMER, BNP, CMP #### [address] Chloride [Moles/Vol] 102 mmol/L Normal 98-107 [facility] Comment on above: Performed By: #### H S TROP, CBC, DDIMER, BNP, CMP #### [address] CO2 [Moles/Vol] 19.7 mmol/L Low 21.0-31.0 [facility] Comment on above: Performed By: #### H S TROP, CBC, DDIMER, BNP, CMP #### [address] Creatinine [Mass/Vol] 0.92 mg/dL Normal 0.70-1.30 [facility] Comment on above: Performed By: #### H S TROP, CBC, DDIMER, BNP, CMP #### [address] Creatinine Clr Calc Pharmacy 138.99 Normal [facility] Comment on above: Result Comment: PERF ORMED BY: [place] [address] PATHOLOGIST BROADCAST JOURNALIST JOBY FORDE M.D. Performed By: #### H S TROP, CBC, DDIMER, BNP, CMP #### [address] GFR/1.73 sq M.predicted MDRD (S/P/Bld) [Vol rate/Area] mL/min/{1.73_m2} Normal [facility] Comment on above: Performed By: #### H S TROP, CBC, DDIMER, BNP, CMP #### [address] Globulin (S) [Mass/Vol] 2.9 g/dL Normal [facility] Comment on above: Performed By: #### H S TROP, CBC, DDIMER, BNP, CMP #### [address] Glucose [Mass/Vol] 121 mg/dL High 70-100 [facility] Comment on above: Result Comment: [place] Glucose Reference Range is dependent on time and content of last meal. Glucose of more than 200 mg/dL in a nonstressed, ambulatory subject supports the diagnosis of Diabetes Mellitus. ADA recommended reference range Performed By: #### H S TROP, CBC, DDIMER, BNP, CMP #### [address] Potassium [Moles/Vol] 3.4 mmol/L Low 3.5-5.1 [facility] Comment on above: Performed By: #### H S TROP, CBC, DDIMER, BNP, CMP #### [address] Protein [Mass/Vol] 7.9 g/dL Normal 6.4-8.9 [facility] Comment on above: Performed By: #### H S TROP, CBC, DDIMER, BNP, CMP #### [address] Sodium [Moles/Vol] 137 mmol/L Normal 136-145 [facility] Comment on above: Performed By: #### H S TROP, CBC, DDIMER, BNP, CMP #### [address] Urea nitrogen [Mass/Vol] 9 mg/dL Normal 7-25 [facility] Comment on above: Performed By: #### H S TROP, CBC, DDIMER, BNP, CMP #### [address] Creatinine [Mass/volume] in Serum or PlasmaOrdered By: Eduin Geller on 11-27-2023 Creatinine [Mass/Vol] 0.92 mg/dL 0.70-1.30 [facility] D-Dimer High Sensitivityon 0 11-27-2023 D-Dimer High Sensitivity 275 ng/mL High 0-243 [facility] Comment on above: Result Comment: [...] coagulation studies. Please contact the laboratory at [phone] for redraw instructions. PERFORMED BY: [place] [address] PATHOLOGIST BROADCAST JOURNALIST JOBY FORDE M.D. Performed By: #### H S TROP, CBC, DDIMER, BNP, CMP #### [address] ECG 12 lead ECGon 11-27-2023 ECG 12 lead ECG [facility] [place] [address] [place] [address] Electrocardiograph Report Signed Patient: Shen Rodriguez MR#: [id number] 561 : 2000 Acct:[id number] Age/Sex: 23 / M ADM Date: 11/27/23 Loc: ER Room: Type: [facility] ER Attending Dr: Ordering Provider: Eduin Geller [...] Borrero MD 11/15 10/08 0145 Normal [facility] Eosinophils Auto (Bld) [#/Vo l]Ordered By: Eduin Geller on 11-27-2023 Eosinophils (Bld) [#/Vol] 0.5 10*3/uL High 0.0-0.45 [facility] Eosinophils/100 WBC Auto (Bl d)Ordered By: Eduin Geller on 11-27-2023 Eosinophils/100 WBC (Bld) 5.6 % . [facility] Erythrocyte distribution wid th Auto (RBC) [Ratio]Ordered By: Eduin Geller on 11-27-2023 Erythrocyte distribution width (RBC) [Ratio] 12.5 % 12.0-14.8 [facility] Fibrin D-dimer [Presence] in Platelet poor plasma by Latex agglutinationOrdered By: Eduin Geller on 11-27-2023 Fibrin D-dimer LA Ql (PPP) 275 ng/mL High 0-243 [facility] Comment on above: The reference range [...] coagulation studies. Please contact the laboratory at [phone] for redraw instructions. Globulin Calc (S) [Mass/Vol] Ordered By: Eduin Geller on 11-27-2023 Globulin (S) [Mass/Vol] 2.9 g/dL [facility] Glucose [Mass/volume] in Ser um or PlasmaOrdered By: Eduin Geller on 11-27-2023 Glucose [Mass/Vol] 121 mg/dL High 70-100 [facility] Comment on above: ADA recommended refe rence rangeRandom Glucose Reference Range is dependent on time and content of last meal. Glucose of more than 200 mg/dL in a nonstressed, ambulatory subject supports the diagnosis of Diabetes Mellitus. Hematocrit Auto (Bld) [Volum e fraction]Ordered By: Eduin Geller on 11-27-2023 Hematocrit (Bld) [Volume fraction] 46.7 % 38.8-50.0 [facility] Hemoglobin [Mass/volume] in BloodOrdered By: Eduin Geller on 11-27-2023 Hemoglobin (Bld) [Mass/Vol] 16.4 g/dL 13.0-17.0 [facility] Leukocytes [#/volume] correc aravind for nucleated erythrocytes in Blood by Automated counOrdered By: Eduin Geller on 11-27-2023 WBC corrected for nucl RBC Auto (Bld) [#/Vol] 8.8 10*3/uL 4.1-10.5 [facility] Lymphocytes Auto (Bld) [#/Vo l]Ordered By: Eduin Geller on 11-27-2023 Lymphocytes (Bld) [#/Vol] 3.2 10*3/uL 1.00-4.8 [facility] Lymphocytes/100 WBC Auto (Bl d)Ordered By: Eduin Geller on 11-27-2023 Lymphocytes/100 WBC (Bld) 36.3 % . [facility] MCH Auto (RBC) [Entitic mass ]Ordered By: Eduin Geller on 11-27-2023 MCH (RBC) [Entitic mass] 33.0 pg 27.5-35.2 [facility] MCHC Auto (RBC) [Mass/Vol]Or dered By: Eduin Geller on 11-27-2023 MCHC (RBC) [Mass/Vol] 35.1 g/dL 32.5-35.[address] [facility] MCV Auto (RBC) [Entitic vol] Ordered By: Eduin Geller on 11-27-2023 MCV (RBC) [Entitic vol] 94.2 fL 83.5-101 [facility] Monocyte distribution width [Entitic volume] in Blood by AutomatedOrdered By: Eduin Geller on 11-27-2023 Monocyte distribution width Auto (Bld) [Entitic vol] 15.32 % 0.00-20.00 [facility] Monocytes Auto (Bld) [#/Vol] Ordered By: Eduin Geller on 11-27-2023 Monocytes (Bld) [#/Vol] 0.9 10*3/uL High 0.0-0.8 [facility] Monocytes/100 WBC Auto (Bld) Ordered By: Eduin Geller on 11-27-2023 Monocytes/100 WBC (Bld) 9.9 % . [facility] Natriuretic peptide B [Mass/ Vol]Ordered By: Eduin Geller on 11-27-2023 Natriuretic peptide B (Bld) [Mass/Vol] 4.0 pg/mL Low 5-100 [facility] Neutrophils Auto (Bld) [#/Vo l]Ordered By: Eduin Geller on 11-27-2023 Neutrophils (Bld) [#/Vol] 4.2 10*3/uL 1.8-7.7 [facility] Neutrophils/100 WBC Auto (Bl d)Ordered By: Eduin Geller on 11-27-2023 Neutrophils/100 WBC (Bld) 47.1 % . [facility] No Panel InformationOrdered By: Eduin Geller on 11-27-2023 Estimated GFR (CKD-EPI) > 60.0 mL/Min [facility] Creatinine Clearance (Chem 138.99 [facility] Nucleated erythrocytes [Pres ence] in Blood by Automated countOrdered By: Eduin Geller on 11-27-2023 Nucleated RBC Auto Ql (Bld) 0.1 /100{WBC} 0-0.5 [facility] Platelet mean volume Auto (B ld) [Entitic vol]Ordered By: Eduin Geller on 11-27-2023 Platelet mean volume (Bld) [Entitic vol] 8.6 fL 6.6-10.1 [facility] Platelets Auto (Bld) [#/Vol] Ordered By: Eduin Geller on 11-27-2023 Platelets (Bld) [#/Vol] 340 10*3/uL 150-450 [facility] Potassium [Moles/volume] in Serum or PlasmaOrdered By: Eduin Geller on 11-27-2023 Potassium [Moles/Vol] 3.4 mmol/L Low 3.5-5.1 [facility] Protein [Mass/volume] in Ser um or PlasmaOrdered By: Eduin Geller on 11-27-2023 Protein [Mass/Vol] 7.9 g/dL 6.4-8.9 [facility] RBC Auto (Bld) [#/Vol]Ordere d By: Eduin Geller on 11-27-2023 RBC (Bld) [#/Vol] 4.96 10*6/uL 3.90-5.60 [facility] Serum or plasma albumin/glob ulin mass ratioOrdered By: Eduin Geller on 11-27-2023 Albumin/Globulin [Mass ratio] 1.7 {ratio} [facility] Serum or plasma anion gap de terminationOrdered By: Eduin Geller on 11-27-2023 Anion gap [Moles/Vol] 18.7 mmol/L High 6.0-15.0 [facility] Sodium [Moles/volume] in Ser um or PlasmaOrdered By: Eduin Geller on 11-27-2023 Sodium [Moles/Vol] 137 mmol/L 136-145 [facility] Troponin I High Sensitivityo n 11-27-2023 Troponin I High Sensitivity 2.8 pg/mL Normal 0.0-20.0 [facility] Comment on above: Result Comment: PERF ORMED BY: [facility] [address] [facility] [place] [address] PATHOLOGIST BROADCAST JOURNALIST JOBY FORDE M.D. Performed By: #### H S TROP, CBC, DDIMER, BNP, CMP #### [facility] [address] Troponin I.cardiac [Mass/vol ume] in Serum or Plasma by Detection limit <= 0.01 ng/Ordered By: Eduin Geller on 11-27-2023 Troponin I.cardiac DL <= 0.01 ng/mL [Mass/Vol] 2.8 pg/mL 0.0-20.0 [facility] Urea nitrogen [Mass/volume] in Serum or PlasmaOrdered By: Eduin Geller on 11-27-2023 Urea nitrogen [Mass/Vol] 9 mg/dL 7-25 [facility] WBC Auto (Bld) [#/Vol]Ordere d By: Eduin Geller on 11-27-2023 WBC (Bld) [#/Vol] 8.8 10*3/uL 4.1-10.5 [facility] COVID/FLU RT-PCRon 3 SARS-CoV-2 (COVID-19) RNA DARI+probe Ql (Unsp spec) Negative [facility] Other COVID/FLU RT-PCR Negative [employer] Other Quick Strepon 04-26-2023 S. pyogenes Org specific cx Ql (Throat) Negative [facility] Other Quick Strep [facility] Other [facility] 11-09-2022 S. pyogenes Org specific cx Ql (Throat) Negative [employer] Other Quick Strep [facility] Other CBC AUTO DIFFon 08-16-2022 BASO # 0.1 103/ul Normal 0.0-0.1 [facility] Comment on above: Performed By: #### C BC ####[facility] [address] [place], [place] [address]Dr. John Paul Herrera Basophils/100 WBC (Bld) 1.3 % Normal 0.2-2.0 [facility] Comment on above: Performed By: #### C BC ####[facility] [address] [place], [place] [address]Dr. John Paul Herrera EO # 0.5 103/ul Normal 0.0-0.7 [facility] Comment on above: Performed By: #### C BC ####[facility] [address] [place], [place] [id number]. John Paul Herrera Eosinophils/100 WBC (Bld) 9.5 % Critically high 0.9-7.0 [facility] Comment on above: Performed By: #### C BC ####[facility] [address] [place] [address]Dr. John Paul Herrera Erythrocyte distribution width (RBC) [Ratio] 11.9 % Normal 11.0-15.0 [facility] Comment on above: Performed By: #### C BC ####[facility] [address] [place], [place] [address]Dr. John Paul Herrera Hematocrit (Bld) [Volume fraction] 45.5 % Normal 42.0-54.0 [facility] Comment on above: Performed By: #### C BC ####[facility] [address] [place] [id number]. John Paul Herrera Hemoglobin (Bld) [Mass/Vol] 16.0 g/dL Normal 14.0-18.0 [facility] Comment on above: Performed By: #### C BC ####[facility] [address] [place] [id number]. John Paul Herrera IG # 0.01 10e3/ul Normal 0.00-0.03 [facility] Comment on above: Performed By: #### C BC ####[facility] [address] [place], [place] [address]Dr. John Paul Herrera IG % 0.2 % Normal 0.0-0.5 [facility] Comment on above: Performed By: #### C BC ####[facility] [address] [place], [place] [address]Dr. John Paul Herrera LYMPH # 1.6 103/ul Normal 1.2-3.8 [facility] Comment on above: Performed By: #### C BC ####[facility] [address] [place], [place] [address]Dr. John Paul Herrera Lymphocytes/100 WBC (Bld) 28.8 % Normal 20.5-60.0 [facility] Comment on above: Performed By: #### C BC ####[facility] [address] [place], [place] [address]Dr. John Paul Herrera MANUAL DIFF REQ NO Normal [facility] Comment on above: Performed By: #### C BC ####[facility] [facility] [address] [place], [place] [address]Dr. John Paul Herrera MCH (RBC) [Entitic mass] 31.4 pg Normal 25.9-34.0 [facility] Comment on above: Performed By: #### C BC ####[facility] [address] [place], [place] [address]Dr. John Paul Herrera MCHC (RBC) [Mass/Vol] 35.2 g/dL Normal 29.9-35.2 [facility] Comment on above: Performed By: #### C BC ####[facility] [address] [place] [id number]. John Paul Herrera MCV (RBC) [Entitic vol] 89.2 fL Normal 80.0-94.0 [facility] Comment on above: Performed By: #### C BC ####[facility] [address] [place] [id number]. John Paul Herrera MONO # 0.7 103/ul Normal 0.3-0.8 [facility] Comment on above: Performed By: #### C BC ####[facility] [address] [place] [id number]. John Paul Herrera Monocytes/100 WBC (Bld) 12.0 % Normal 1.7-12.0 [facility] Comment on above: Performed By: #### C BC ####[facility] [address] [place], [place] [address]Dr. John Paul Herrera NEUT # 2.7 103/ul Normal 1.4-6.5 [facility] Comment on above: Performed By: #### C BC ####[facility] [address] [place], [place] [id number]. John Paul Herrera Neutrophils/100 WBC (Bld) 48.2 % Normal 43.0-75.0 [facility] Comment on above: Performed By: #### C BC ####[facility] [address] [address]Dr. John Paul Herrera Platelet mean volume (Bld) [Entitic vol] 9.5 fL Normal 9.5-13.5 [facility] Comment on above: Performed By: #### C BC ####[facility] [address] [id number]. John Paul Javier PLT 284 103/ul Normal 150-450 [facility] Comment on above: Performed By: #### C BC ####[facility] [address] [place], [place] [id number]. Mereelsa Javier RBC 5.10 106/ul Normal 4.70-6.10 [facility] Comment on above: Performed By: #### C BC ####[facility] [address] [id number]. John Paul Herrera WBC 5.5 103/ul Normal 4.0-11.0 [facility] Comment on above: Performed By: #### C BC ####[facility] [address] [place] [id number]. John Paul Herrera PROF CHEM 8 (BAS METB)on Anion gap [Moles/Vol] 8.9 mmol/L Normal [facility] Comment on above: Performed By: #### H STROPN, BMP, TSH #### [facility] [address] [address] [address] John Paul Herrera Calcium [Mass/Vol] 9.2 mg/dL Normal 8.5-10.1 [facility] Comment on above: Performed By: #### H STROPN, BMP, TSH #### [facility] [address] [address] [address] John Paul Herrera Chloride [Moles/Vol] 104 mmol/L Normal 98-107 [facility] Comment on above: Performed By: #### H STROPN, BMP, TSH #### [facility] [address] [address] [address] John Paul Herrera CO2 [Moles/Vol] 28.7 mmol/L Normal 21.0-32.0 [facility] Comment on above: Performed By: #### H STROPN, BMP, TSH #### [facility] [address] [address] [address] John Paul Herrera Creatinine [Mass/Vol] 0.84 mg/dL Normal 0.70-1.30 [facility] Comment on above: Performed By: #### H STROPN, BMP, TSH #### [facility] [address] [address] [address] John Paul Herrera EGFR-AF EAST TIMORESE >60 Normal >=60 [facility] Comment on above: Performed By: #### H STROPN, BMP, TSH #### [facility] [address] [address] [address] John Paul Herrera EGFR-NON AF EAST TIMORESE >60 Normal >=60 [facility] Comment on above: Performed By: #### H STROPN, BMP, TSH #### [facility] [address] [address] [address] John Paul Herrera Glucose [Mass/Vol] 97 mg/dL Normal 74-106 [facility] Comment on above: Performed By: #### H STROPN, BMP, TSH #### [facility] [address] [address] [address] John Paul Herrera Potassium [Moles/Vol] 4.6 mmol/L Normal 3.5-5.1 [facility] Comment on above: Performed By: #### H STROPN, BMP, TSH #### [facility] [address] [address] [address] John Paul Herrera Sodium [Moles/Vol] 137 mmol/L Normal 136-145 [facility] Comment on above: Performed By: #### H STROPN, BMP, TSH #### [facility] [address] [address] [address] John Paul Herrera Urea nitrogen [Mass/Vol] 14.0 mg/dL Normal 7.0-18.0 [facility] Comment on above: Performed By: #### H STROPN, BMP, TSH #### [facility] [address] [address] [address] John Paul Herrera Urea nitrogen/Creatinine [Mass ratio] 16.7 mg/mg Normal [facility] Comment on above: Performed By: #### H STROPN, BMP, TSH #### [facility] [address] [address] [address] John Paul Herrera TROPONIN, HIGH SENSITIVITYon 08-16-2022 HSTROP 11.0 pg/mL Normal 4.0-76.1 [facility] Comment on above: Result Comment: CUT- OFF POINTS HAVE BEEN ESTABLISHED BASED ON THE FOURTH UNIVERSAL DEFINITIONS OF MYOCARDIAL INFARCTION. THE UPPER REFERENCE LIMIT (URL) OF TROPONIN, DEFINED THE 99TH PERCENTILE OF cTnI DISTRIBUTION IN A REFERENCE POPULATION, HAS BEEN CONFIRMED THE DECISION THRESHOLD FOR RI DIAGNOSIS. Performed By: #### H STROPN, BMP, TSH ####[facility] [address] [address]Dr. John Paul Herrera TSHon 08-16-2022 TSH 1.407 uIU/mL Normal 0.358-3.740 [facility] Comment on above: Performed By: #### H IVYPN, BMP, TSH ####[facility] [address] [place], [place] [address]EeDr. John Paul Herrera XR CHEST 1 Von [...] PARK GOFF Date: 2022-08-16 16:08 Normal [facility] CARDIAC SARAH 3-6on 2 CK [Catalytic activity/Vol] 318 U/L Critically high 55-170 [facility] Comment on above: Performed By: #### C MREP #### [facility] [address] [address] [address] John Paul Herrera CK.MB [Mass/Vol] 2.73 ng/mL Critically high <=2.37 [facility] Comment on above: Performed By: #### C MREP #### [facility] [address] [address] [address] John Paul Herrera HSTROP 10.7 pg/mL Normal 4.0-42.2 [facility] Comment on above: Result Comment: CUT- OFF POINTS HAVE BEEN ESTABLISHED BASED ON THE FOURTH UNIVERSAL DEFINITIONS OF MYOCARDIAL INFARCTION. THE UPPER REFERENCE LIMIT (URL) OF TROPONIN, DEFINED THE 99TH PERCENTILE OF cTnI DISTRIBUTION IN A REFERENCE POPULATION, HAS BEEN CONFIRMED THE DECISION THRESHOLD FOR RI DIAGNOSIS. Performed By: #### C MREP #### [facility] [address] [place], [place] [address] Dr. John Paul Herrera CARDIAC SARAH ADMITon 022 CK [Catalytic activity/Vol] 399 U/L Critically high 55-170 [facility] Comment on above: Result Comment: Test Repeated. Critical Value Verified Performed By: #### B JULIANNE, CMADM #### [facility] [address] [place] [address] Dr. John Paul Herrera CK.MB [Mass/Vol] 3.88 ng/mL Critically high <=2.37 [facility] Comment on above: Result Comment: Test Repeated. Critical Value Verified Performed By: #### B JULIANNE, GILBERTDM #### [facility] [address] [place] [address] Dr. John Paul Herrera HSTROP 9.4 pg/mL Normal 4.0-42.2 [facility] Comment on above: Result Comment: CUT- OFF POINTS HAVE BEEN ESTABLISHED BASED ON THE FOURTH UNIVERSAL DEFINITIONS OF MYOCARDIAL INFARCTION. THE UPPER REFERENCE LIMIT (URL) OF TROPONIN, DEFINED THE 99TH PERCENTILE OF cTnI DISTRIBUTION IN A REFERENCE POPULATION, HAS BEEN CONFIRMED THE DECISION THRESHOLD FOR RI DIAGNOSIS. Performed By: #### B JULIANNE, GILBERTDM #### [facility] [address] [place] [address] Dr. John Paul Herrera ALEXIS 84.0 ng/mL Normal <=121.0 [facility] Comment on above: Performed By: #### B JULIANNE, GILBERTDM #### [facility] [address] [place] [address] Dr. John Paul Herrera CTA CHEST WO W CONon 11-04-2 022 CTA CHEST WO W CON EXAMINATION: [...] by: PARK GOFF Date: 2021-11-04 07:32 Normal [facility] D-DIMERon 11-04-2021 D-DIMER 0.94 mg/L FEU Critically high 0.19-0.50 [facility] Comment on above: Performed By: #### D DIM #### [facility] [address] [place] [address] Dr. John Paul Herrera D-DIMER COMMENTS SEE BELOW Normal [facility] Comment on above: Result Comment: Incr [...] hospitalization. Performed By: #### D DIM #### [facility] [address] [place] [address] Dr. John Paul Herrera PROF CHEM 8 (BAS METB)on Anion gap [Moles/Vol] 15.1 mmol/L Normal [facility] Comment on above: Performed By: #### B ANANYA WHITAKER #### [facility] [address] [place] [address] Dr. John Paul Herrera Calcium [Mass/Vol] 8.7 mg/dL Normal 8.5-10.1 [facility] Comment on above: Performed By: #### B ANANYA WHITAKER #### [facility] [address] [place] [address] Dr. John Paul Herrera Chloride [Moles/Vol] 101 mmol/L Normal 98-107 [facility] Comment on above: Performed By: #### B ANANYA WHITAKER #### [facility] [address] [place] [address] Dr. John Paul Herrera CO2 [Moles/Vol] 26.4 mmol/L Normal 22.0-30.0 [facility] Comment on above: Performed By: #### B ANANYA WHITAKER #### [facility] [address] [address] [address] John Paul Herrera Creatinine [Mass/Vol] 0.90 mg/dL Normal 0.66-1.25 [facility] Comment on above: Performed By: #### B JULIANNE, ANANYA #### [facility] [address] [address] [address] John Paul Herrera EGFR-AF EAST [place]ESE >60 Normal >=60 [facility] Comment on above: Performed By: #### B ANANYA WHITAKER #### [facility] [address] [address] [address] John Paul Herrera EGFR-NON AF EAST [place]ESE >60 Normal >=60 [facility] Comment on above: Performed By: #### B ANANYA WHITAKER #### [facility] [address] [address] [address] John Paul Herrera Glucose [Mass/Vol] 108 mg/dL Critically high 74-106 [facility] Comment on above: Performed By: #### B ANANYA WHITAKER #### [facility] [address] [address] [address] John Paul Herrera Potassium [Moles/Vol] 3.5 mmol/L Normal 3.4-5.0 [facility] Comment on above: Performed By: #### B JULIANNE, ANANYA #### [facility] [address] [address] [address] John Paul Herrera Sodium [Moles/Vol] 139 mmol/L Normal 137-145 [facility] Comment on above: Performed By: #### B ANANYA WHITAKER #### [facility] [address] [address] [address] John Paul Herrera Urea nitrogen [Mass/Vol] 8.0 mg/dL Normal 7.0-18.0 [facility] Comment on above: Performed By: #### B ANANYA WHITAKER #### [facility] [address] [address] [address] John Paul Herrera Urea nitrogen/Creatinine [Mass ratio] 8.9 mg/mg Normal [facility] Comment on above: Performed By: #### B ANANYA WHITAKER #### [facility] [id number] John Paul Herrera XR CHEST 2 [...] by: EMERALD PUENTES Date: 2021-11-04 06:11 Normal [facility] XR FOOT LT MIN 3 VIEWSon [...] by: Amrik CASTRO Date: 2021-09-30 00:47 Normal [facility] Vital Signs Date Time Vital Sign Value Performing Clinician Facility 02-14-2024 17:39-0400 Body height 175.26 cm ALMA Geller Work Phone: [facility] 02-14-2024 17:39-0400 Body mass index (BMI) [Ratio] 29.5 kg/m2 ALMA Geller Work Phone: [facility] 02-14-2024 17:39-0400 Body temperature 97.7 [degF] ALMA Geller Work Phone: [facility] 02-14-2024 17:39-0400 Body weight 90.83 kg PA-C Eduin Geller Work Phone: [facility] 02-14-2024 17:39-0400 Diastolic blood pressure 70 mm[Hg] PA-C Eduin Geller Work Phone: [facility] 02-14-2024 17:39-0400 Heart rate 75 /min PA-C Eduin Geller Work Phone: [facility] 02-14-2024 17:39-0400 Respiratory rate 18 /min PA-C Eduin Geller Work Phone: [facility] 02-14-2024 17:39-0400 SaO2% (BldA) [Mass fraction] 95 % PA-C Eduin Geller Work Phone: [facility] 02-14-2024 17:39-0400 Systolic blood pressure 123 mm[Hg] PA-C Eduin Geller Work Phone: [facility] 12-19-2023 17:51-0400 Body height 175.26 cm PA-C Eduin Geller Work Phone: [facility] 12-19-2023 17:51-0400 Body mass index (BMI) [Ratio] 28.9 kg/m2 PA-C Eduin Geller Work Phone: [facility] 12-19-2023 17:51-0400 Body temperature 99 [degF] PA-C Eduin Geller Work Phone: [facility] 12-19-2023 17:51-0400 Body weight 88.96 kg PA-C Eduin Geller Work Phone: [facility] 12-19-2023 17:51-0400 Heart rate 84 /min PA-C Eduin Geller Work Phone: [facility] 12-19-2023 17:51-0400 Respiratory rate 18 /min PA-C Eduin Geller Work Phone: [facility] 12-19-2023 17:51-0400 SaO2% (BldA) [Mass fraction] 99 % PA-C Eduingrace Geller Work Phone: [facility] 11-27-2023 22:46-0400 Diastolic blood pressure 87 mm[Hg] PA-C Eduin Duyen Work Phone: [facility] 11-27-2023 22:46-0400 Heart rate 108 /min PA-C Eduin Duyen Work Phone: [facility] 11-27-2023 22:46-0400 Respiratory rate 20 /min PA-C Eduingrace Geller Work Phone: [facility] 11-27-2023 22:46-0400 SaO2% (BldA) [Mass fraction] 99 % PA-C Eduin Duyen Work Phone: [facility] 11-27-2023 22:46-0400 Systolic blood pressure 170 mm[Hg] PA-C Eduingrace Geller Work Phone: [facility] 11-27-2023 19:37-0400 Body height 175.26 cm PA-C Eduin Duyen Work Phone: [facility] 11-27-2023 19:37-0400 Body temperature 98.2 [degF] PA-C Eduin Duyen Work Phone: [facility] 11-27-2023 19:37-0400 Body weight 94.1 kg PA-C Eduin Duyen Work Phone: [facility] 04-26-2023 16:40-0400 Body height 175.26 cm Stefanie Sotelo Other [facility] Other 04-26-2023 16:40-0400 Body mass index (BMI) [Ratio] 30.51 kg/m2 Stefanie Sotelo Other [facility] Other 04-26-2023 16:40-0400 Body temperature 99.1 [degF] Stefanie Sotelo Other [facility] Other 04-26-2023 16:40-0400 Body weight 93.71 kg Stefanie Sotelo Other [facility] Other 04-26-2023 16:40-0400 Respiratory rate 18 /min Stefanie Sotelo Other [facility] Other 04-26-2023 16:40-0400 SaO2% (BldA) [Mass fraction] 88 % Stefanie Sotelo Other [facility] Other 11-09-2022 18:35-0400 Body height 175.26 cm Stefanie Sotelo Other [facility] Other 11-09-2022 18:35-0400 Body mass index (BMI) [Ratio] 30.57 kg/m2 Stefanie Sotelo Other [facility] Other 11-09-2022 18:35-0400 Body temperature 99.1 [degF] Stefanie Sotelo Other [facility] Other 11-09-2022 18:35-0400 Body weight 93.9 kg Stefanie Sotelo Other [facility] Other 11-09-2022 18:35-0400 Respiratory rate 18 /min Stefanie Sotelo Other [facility] Other 11-09-2022 18:35-0400 SaO2% (BldA) [Mass fraction] 99 % Stefanie Sotelo Other [facility] Other Encounters Encounter Date Encounter Type Care Provider Facility Start: 02-14-2024 End: 02-14-2024 ambulatory PA-C Eduin Geller Work Phone: [facility] Work Phone: Start: 02-14-2024 End: 02-14-2024 Patient encounter procedure PA-Jaden Geller Work Phone: [facility] Work Phone: Start: 12-19-2023 End: 12-19-2023 ambulatory PA-C Eduin Geller Work Phone: [facility] Work Phone: Start: 12-19-2023 End: 12-19-2023 Patient encounter procedure PA-Jaden Geller Work Phone: [facility] Work Phone: Start: 11-27-2023 End: 11-28-2023 Emergency department patient visit Eduin Hermila Geller Facility:[facility] Start: 11-27-2023 End: 11-27-2023 Emergency department patient visit SANCHEZ-Jaden Eduingrace Geller Work Phone: [facility] Work Phone: Start: 09-06-2023 Non-patient / Non-visit ALMA Geller Work Phone: [facility] Work Phone: Start: 04-26-2023 End: 04-26-2023 ambulatory Stefanie Sotelo Other [facility] Other Start: 04-26-2023 Office outpatient vi sit 25 minutes Stefanie Sotelo [facility] Start: 11-09-2022 End: 11-09-2022 ambulatory Stefanie Sotelo Other [facility] Other Start: 11-09-2022 Office outpatient vi sit 25 minutes Stefanie Stoelo [facility] Start: 08-16-2022 End: 08-16-[address] PARK GOFF Facility:[facility] Start: 11-04-2021 End: 11-04-[address] OLIVO LISTED REQUEST Facility:[facility] Start: 09-30-2021 End: 09-30-[address] SARAH KIM Facility:[facility] Procedures Date Procedure Procedure Detail Performing Clinician Start: 11-27-2023 CT angiography of thorax ALMA Geller Work Phone: Start: 11-27-2023 Plain chest X-ray JACYJaden Eduin Geller Work Phone: Plan of Treatment Date Care Activity Detail Author Start: 11-27-2023 CT angiography of thorax CT an tanya chest PE protocol [facility] Start: 11-27-2023 CT Chest [facility] Start: 11-27-2023 Plain chest X-ray XR chest 2V* [facility] Start: 11-27-2023 XR Chest 2 Views [facility] Patient Education Chest Pain, Ad ult ED Anxiety, Adult ED [facility] Work Phone: Patient referral [facility] Work Phone: [facility] Payers Date Payer Category Payer Self-pay [id number] 2000 Unknown [id number] 2000 Unknown [id number] 1998 Unknown [id number] 1961 Unknown [id number] Unknown [id number] Social History Date Type Detail Facility Unknown if ever smoked [facility] Other Sex Assigned At Sex Assigned At Bir th [facility] Other Start: 11-27-2023 Tobacco smoking status NHIS Smoker (finding) [facility] Start: 2000 Sex Assigned At Male F [facility] Evaluation note 04-26-2023 Note Date & Type [...] condition Apr, Sore throat (ICD-10 - J02.9) [facility] Other Evaluation note 11-09-2022 Note Date & [...] treatment plan. Patient left in stable condition. [facility] Other Evaluation note Note Date & Type Note Facility Evaluation note No assessment information availa ble [facility] Work Phone: Evaluation note Note Date & Type Note Facility Evaluation note Diagnosis Onset Date Strain of wrist, left acute [facility] Work Phone: History general Narrative - Reported Note Date & Type Note Facility History general Narrative - Reported Type Surgical History appendectomy 2001 Hospitalization History see above surgical histo ry [facility] Other Summary Purpose Family History Relationship Condition Age at Onset Recorded Date/T tanika Not Specified Heart disease Unknown Relationship Condition Age at Onset Recorded Date/T tanika mother Heart disease Unknown Advance Directives Advance Directive Response Recorded Date/ Time Advance Directives No October 06, 2 022 3:51pm Chief Complaint and Reason for Visit Chief Complaint panic attack Chief Complaint panic attack left wrist pain Chief Complaint panic attack left wrist pain Right wrist pain after fall Reason for Visit Strain of wrist, lef t Additional Source Comments (unrecognized sect ion and content) No Status Records FoundNo Status Records Found INFORMATION SOURCE (unrecogn ized section and content) DATE CREATED AUTHOR 08/17/2022 [facility] DATE CREATED AUTHOR AUTHOR'S ORGANIZ ATION 12/08/2023 [facility] REASON FOR VISIT (unrecogniz ed section and content) COUGH, CONGESTION, SORE THRO AT, HEADACHEUPPER RESPITORY, COUGH, PHLEM, EARS Care Teams (unrecognized sec tion and content) Team Status: Active Member Role Status Dates PHYSICIAN NO FAMILY Primary Care Provider Active Team Status: Inactive Member Role Status Dates Eduin Geller PA-C Emergency Provider Active Start: November 27, 2023 End: November 27, 2023 PHYSICIAN NO FAMILY Primary Care Provider Active Start: November 27, 2023 End: November 27, 2023 Team Status: Inactive Member Role Status Dates PHYSICIAN NO FAMILY Primary Care Provider Active Start: December 19, 2023 End: December 19, 2023 Dawna Hall APRN Attending Provider Active Start: December 19, 2023 End: December 19, 2023 Team Status: Active Member Role Status Dates NON STAFF Primary Care Provider Active Start: September 06, 2023 Adalberto Calero DO Attending Provider Active Sta rt: September 06, 2023 Team Status: Inactive Member Role Status Dates PHYSICIAN NO FAMILY Primary Care Provider Active Start: February 14, 2024 End: February 14, 2024 Dawna Hall , [employer] Attending Provider Active Start: February 14, 2024 End: February 14, 2024 Goals (unrecognized section and content) Goals may [...] BE BASED ON THE PRIMARY CLINICAL RECORDS. [employer] provides no warranty or guarantee of the accuracy or completeness of information in this document.
[2024-07-20 09:18] LABS: Alanine Aminotransferase 99 U/L (16-63); Albumin Globulin Ratio 1.2; Albumin Level 4.1 g/dL (3.4-5.0); Alkaline Phosphatase 58 U/L (46-116); Anion Gap 13.5; Aspartate Amino Transferase 47 U/L (15-37); BUN Creatinine Ratio 15.5; Bilirubin Total 0.9 mg/dL (0.2-1.0); Calcium 9.5 mg/dL (8.5-10.1); Carbon Dioxide 25.7 mmol/L (21.0-32.0); Chloride 101 mmol/L (98-107); Estimated GFR (African America >60 (>=60 mL/min/1.73m^2); Estimated GFR (Non-African Ame >60 (>=60 mL/min/1.73m^2); Globulin 3.5 g/dL; Glucose 88 mg/dL (74-106); Potassium 4.2 mmol/L (3.5-5.1); Sodium 136 mmol/L (136-145); Total Protein 7.6 g/dL (6.4-8.2)
[2024-07-20 09:20] LABS: Troponin I High Sensitivity 9.7 pg/mL (4.0-76.1)
[2024-07-20 09:37] LABS: D Dimer 0.83 mg/L FEU (<=0.59)
--- NOTE | 2024-07-20 09:42 | CT_ITS ---
[address] [address] Patient Name: BEV MORROW MRN: [id number] date: 2000 Sex: M Assigned Patient Location: ER Current Patient Location: ER Accession/Order Number: [id number] Exam Date: 07/20/2024 09:50 Report Date: 07/20/2024 11:20 At the request of: HARLEEN BROWN Procedure: CT angio chest EXAM: CT angio chest HISTORY: elevated DDIMER COMPARISON: CT chest 09/06/2023. TECHNIQUE: Following intravenous administration of 100 cc of Omnipaque 350, axial soft tissue and lung windows of the chest were sagittal reformats. 3-D MIPS reconstructions were created and reviewed. CT dose reduction technique was used including Automated Exposure Control. Findings: The heart is nonenlarged. No pericardial effusion. The thoracic aorta is normal caliber. There is adequate opacification of the pulmonary arteries. No evidence of pulmonary embolism. The central airways are patent. No pneumothorax. No pleural effusion. No focal consolidation. No enlarged mediastinal, hilar, axillary or supraclavicular lymph nodes. There is fatty infiltration of the liver. No aggressive sclerotic or lytic osseous lesions. CT/CT angio chest IMPRESSION: 1. No pulmonary embolism. 2. Fatty liver. Electronically authenticated by: ZULY RIZVI Date: 07/20/2024 11:20
[2024-07-20 10:42] LABS: Troponin I High Sensitivity 8.9 pg/mL (4.0-76.1)
== END 2024-07-20 12:17 | disposition home or self-care (01) ==
PROVIDERS: Emergency Provider Emergency Medicine
DX: R07.9 Chest pain, unspecified (principal); F17.290 Nicotine dependence, other tobacco product, uncomplicated; R79.89 Other specified abnormal findings of blood chemistry; K76.0 Fatty (change of) liver, not elsewhere classified; F41.8 Other specified anxiety disorders
CPT/HCPCS: 36415; 71046; 71275; 80053; 84484; 85025; 85378; 93005; 99285; Q9967